=== PATIENT | male | born 1965 | race Caucasian/White ===

== ENCOUNTER 2022-01-08 16:11 | Emergency (ER) | payer BC, SELFPAY ==
[2022-01-08] VITALS (34 sets, daily range): BP systolic 120–151; BP diastolic 73–86; PULSE 93–119; RESP 14–40; TEMP 37–37.2; O2SAT 91–98
--- NOTE | ~2022-01-08 | CT_ITS ---
EXAMINATION: CT pelvis w con DATE: 01/08/2022 21:28 INDICATION: Rule out Chani gangrene TECHNIQUE: Computed tomography (CT) of the pelvis was performed with 100 mL Omnipaque-300 intravenous contrast. Automated exposure control and iterative reconstruction technique were employed. The dose- length product was 1372.29 mGy-cm. COMPARISON: None FINDINGS: Liver: Steatosis. Kidneys: Bilateral simple cysts. Right-sided hypodensities that are too small to characterize but als o likely represent cysts. Left inferior pole calcifications. GI tract: No small or large bowel dilation. Normal appendix. Mesentery/Peritoneum: No ascites, mass, or free air. Retroperitoneum: No mass. Pelvis: Bladder wall thickening, with mild surrounding inflammatory change. Mild prostate enlargement with calcifications. Seminal vesicles appear grossly normal. Soft Tissues: Small bilateral fat-containing inguinal hernias. Skin thickening and edema primarily af fecting the scrotum, but also extending into the soft tissues of the penis, with surrounding inflamma tory change. 1.7 cm rim-enhancing focus in the inferior right scrotum. No subcutaneous emphysema. Bones: No acute osseous finding. IMPRESSION: Extensive edema involving the skin of the scrotum, extending into the soft tissues of the penis. Poss ible 1.7 cm subcutaneous abscess in the inferior right scrotum. No subcutaneous emphysema to suggest necrotizing fasciitis, although this remains a clinical diagnosis. Reviewed, dictated and finalized at location K. IMPRESSION: Extensive edema involving the skin of the scrotum, extending into the soft tiss ues of the penis. Possible 1.7 cm subcutaneous abscess in the inferior right sc rotum. No subcutaneous emphysema to suggest necrotizing fasciitis, although thi s remains a clinical diagnosis.
--- NOTE | ~2022-01-08 | US_ITS ---
EXAMINATION: US scrotum doppler DATE: 01/08/2022 18:52 INDICATION: Testicular swelling, pain, fever. TECHNIQUE: Grayscale and Doppler ultrasound images of the testes were obtained. COMPARISON: None. FINDINGS: The right testis measures 4.7 x 2.6 x 3.7. The left testis measures 5.0 x 2.4 x 3.2. There is normal vascular flow to both testes. The right epididymis is normal with normal vascular flow. The left epididymis is normal with normal vascular flow. Trace bilateral hydroceles. Right varicocele. S crotal skin thickening. IMPRESSION: 1. No intratesticular mass or sonographic evidence of torsion. Right varicocele. 2. Possible scrotal cellulitis, correlate clinically. Reviewed, dictated and finalized at location K. IMPRESSION: 1. No intratesticular mass or sonographic evidence of torsion. Right varicocel e. 2. Possible scrotal cellulitis, correlate clinically.
--- NOTE | 2022-01-08 16:17 | ECG_ITS ---
Measurements Intervals [place] Rate: 115 P: 75 IN: 162 QRS: -68 QRSD: 114 T: 55 QT: 335 QTc: 465 Interpretive Statements SINUS TACHYCARDIA LEFT ANTERIOR FASCICULAR BLOCK ABNORMAL ECG Electronically Signed On 01-08-2022 16:22:23 CDT by Soren Blackwood D.O.
--- NOTE | 2022-01-08 17:51 | ED.MALEGU ---
HPI - Male Genitourinary General Chief complaint: Urogenital-Male Stated complaint: testicular swelling and pain Time Seen by Provider: 01/08/22 17:51 Source: patient and RN notes reviewed Limitations: no limitations History of Present Illness HPI Narrative: Patient is 56 years old white male presented to the ED with pain and swelling of the scrotum. He reported having a pimple like lesion at the bottom of his scrotum 2 months ago. Been squeezing pus material out of it for the last 2 months. Today got more swollen, more red and more tender. He denies any fever, chills, nausea, vomiting. History of diabetes and hyperlipidemia. Related Data Allergies Allergy/AdvReac Type Severity Reaction Status Date / Time No Known Allergies Allergy Verified 01/08/22 17:58 Review of Systems Review of Systems: All systems reviewed & are unremarkable except as noted in HPI and below PMFSH Past Medical History Medical History Diabetes mellitus type 2, uncontrolled GILES (obstructive sleep apnea) Surgical History Surgical History H/O left nephrectomy Family History Family History Mother Family history of cardiovascular disease Acute myocardial infarction Hypertension Father Acute myocardial infarction, Onset Age: 55 Family history of primary malignant neoplasm of liver, Onset Age: 55 Other Diabetes mellitus Social History Social History Smoking status: Former smoker Tobacco type: smokeless tobacco Smokeless tobacco user: other Alcohol intake: never Exam Narrative: General appearance: Well-developed, well-nourished Skin: Normal color Head: Normocephalic, nontraumatic Eyes: Clear conjunctiva ENT: Oropharynx normal, ears normal, nose normal Neck: Supple, nontender Chest and respiratory: Airway patent, no respiratory distress, no accessory muscle use Heart: Regular rate/rhythm Abdomen: Soft, diffuse erythema of the suprapubic area bilaterally, warm, diffusely tender, genital exam showed diffuse edema of the scrotum and penis with extensive erythema and a lump-like feeling at the bottom of the scrotum, no discharge at this time Vascular: Normal peripheral pulses, normal capillary refill. 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 Consultations Consultation #1: Dr. Ortega Accepted patient admission to the hospitalist. Date: 01/08/22 Time: 22:44 Consultation #2: Dr. Fajardo, Declined to accept the patient admission unless Dr. Ortega come and see the patient tonight. She is concerned about the possibility of impending necrotizing fasciitis. Specially the patient is diabetic. Date: 01/08/22 Time: 22:45 Consultation #3: Dr. Ortega Requested to transfer patient to another facility. Date: 01/08/22 Time: 22:45 Vital Signs Vital signs: Vital Signs Temperature 37.0 C 01/08/22 16:14 Pulse Rate 118 H 01/08/22 16:14 Respiratory Rate 20 01/08/22 16:14 Blood Pressure 151/78 H 01/08/22 16:14 Pulse Oximetry 97 01/08/22 16:14 Temperature 37.2 C 01/08/22 20:52 Pulse Rate 100 01/08/22 21:39 Respiratory Rate 18 01/08/22 21:39 Blood Pressure 135/73 01/08/22 21:39 Pulse Oximetry 98 01/08/22 21:39 MDM - Male Genitourinary Lab Data Result diagrams: 01/08/22 21:47 01/08/22 20:37 La
--- NOTE | 2022-01-08 18:36 | PC.NURSE ---
US at bedside for doppler
[2022-01-08] MEDS: ACETAMINOPHEN 500 MG TABLET 1000 MG PO (20:45)
[2022-01-08] MEDS: SODIUM CHLORIDE 0.9% IV 1,000 ML 999 ML IV CONT ×2 (20:45→23:41)
[2022-01-08 20:55] LABS: Lactic Acid Reflex 1.7 mmol/L (0.7-2.0)
[2022-01-08 21:01] LABS: Alanine Aminotransferase 45 U/L (6-50); Albumin Level 4.6 g/dL (3.5-5.1); Alkaline Phosphatase 74 U/L (38-126); Anion Gap 12 mmol/L (8-16); Aspartate Amino Transferase 25 U/L (17-59); Bilirubin,Total 1.6 mg/dL (0.2-1.3); Blood Urea Nitrogen 13 mg/dL (9-20); Calcium 9.2 mg/dL (8.4-10.2); Carbon Dioxide 20 mmol/L (22-30); Chloride 99 mmol/L (98-107); Estimated CRCL calculation 136 ml/min; Estimated Glomerular Filt Rate > 60; Glucose 310 mg/dL (65-110); Potassium 3.9 mmol/L (3.4-5.0); Sodium 131 mmol/L (137-145)
[2022-01-08 21:29] LABS: CRP 19.6 mg/dL (<1.0)
--- NOTE | 2022-01-08 21:33 | PC.NURSE ---
PT family updated per pt request
[2022-01-08 21:49] LABS: Appearance Urine Clear (Clear); Bilirubin Urine Negative (Negative); Color Urine Yellow (Yellow); Glucose Urine UA 3+ mg/dL (Negative); Ketones Urine 3+ mg/dL (Negative); Leukocyte Esterase Ur Negative LEU/UL (Negative); Nitrate Urine Negative (Negative); Protein Urine 1+ mg/dL (Negative); Specific Grav Ur 1.025 (1.001-1.035); Urobilinogen Urine 0.2 mg/dL (<2.0); pH Urine 5.5 (5.0-9.0)
[2022-01-08 21:55] LABS: Basophils Absolute Auto 0.1 K/mm3 (0.0-0.1); Basophils Percent Auto 0.4 % (0.2-1.2); Hematocrit 41.1 % (42.0-52.0); Hemoglobin 13.8 g/dL (14.0-18.0); Immature Granulocyte Absolute 0.11 K/mm3 (0.00-0.031); Immature Granulocyte Percent A 0.7 % (0-0.5); Lymphocytes Percent Auto 7.3 % (18.3-44.2); Mean Corpuscular HGB Conc 33.6 g/dl (32-36); Mean Corpuscular Hemoglobin 28.9 pg (26-34); Mean Platelet Volume 10.9 fl (7.4-10.4); Monocytes Percent Auto 6.3 % (2.6-8.5); Neutrophils Percent Auto 85.3 % (45.5-73.1); Platelet Count Result 143 k/mm3 (150-375); Red Blood Count 4.78 M/mm3 (4.6-6.20); Red Cell Distribution Width 12.5 % (11.5-14.5); White Blood Count 16.4 K/mm3 (4.5-10.0)
[2022-01-08 21:57] LABS: Add Urine Microscopic? YES; Blood Urine Trace (Negative)
[2022-01-08 22:04] LABS: RBC Urine 0-2 /hpf (0-2); Squamous Epithelial Cell Urine Rare /hpf (Few)
--- NOTE | 2022-01-08 22:54 | PC.NURSE ---
Call [facility] at [phone] not accepting patients. Call [facility] at [phone] not excepting patients. Call [facility] at [phone] waiting for doctor to return call.
[2022-01-09 00:01] VITALS: PULSE 91; RESP 22; O2SAT 94
--- NOTE | 2022-01-09 00:08 | PC.NURSE ---
[facility] call back at [phone] states the patient been denied and will call back in the morning if they any beds open.
[2022-01-09 00:15] VITALS: PULSE 98; RESP 22; O2SAT 90
[2022-01-09 01:48] LABS: Glucose Point of Care 261 mg/dl (65-105)
[2022-01-09 01:56] VITALS: BP 138/72; PULSE 94; RESP 16; TEMP 37.7; O2SAT 98
--- NOTE | 2022-01-09 02:09 | PM.IMCN ---
Assessment and Plan Assessment and plan (1) Chani's gangrene of scrotum: Code(s): N49.3 - Chani gangrene Status: Acute (2) Necrotizing fasciitis: Code(s): M72.6 - Necrotizing fasciitis Status: Acute (3) Type 2 diabetes mellitus with hyperglycemia, without long-term current use of insulin: Code(s): E11.65 - Type 2 diabetes mellitus with hyperglycemia Status: Acute (4) Sepsis: Qualifiers: Sepsis acute organ dysfunction status: without acute organ dysfunction Sepsis type: sepsis due to unspecified organism Qualified Code(s): A41.9 - Sepsis, unspecified organism Code(s): A41.9 - Sepsis, unspecified organism Status: Acute Additional Plan I was contacted around 10:00 p.m. regarding possible admission for the patient. However patient had LRINEC score of 9 [address] abscess [address] scan. The patient's is back story was highly suspicious of necrotizing fasciitis/Chani's gangrene. I felt the patient needed higher level of care. The ER staff stated that urology would see the patient they would not come in and evaluate the patient this evening. The contacted Urology again in urology told them to transfer the patient. The ER called me back around 1:00 a.m. stating that multiple facilities were contacted in that the did not have beds available. I went down to the ER to evaluate the patient and told them that I still felt the patient needed transfer to tertiary care. So I called the axis line for [facility] myself. I explained the patient's condition and they immediately agreed to take the patient for in the ER to ER transfer. The patient had received Rocephin, Flagyl and vancomycin in the ER. I stopped Rocephin and Flagyl and give the patient a dose of ertapenem and clindamycin. I discussed the patient's case with the ER physician who accepted patient in transfer. Patient was sent via ALS. Patient condition is serious. 60 minute spent critical care activities. This case had a high probability of a clinically significant, sudden, or life threatening deterioration of this patient's condition which required my full and direct attention, intervention and personal management. HPI Data of Consult Consult date: 01/10/22 Primary Care Provider: Kam Manning MD Consult Narrative Narrative: Carson Ring is a 56 year old male with a past medical history of obesity, obstructive sleep apnea, hyperlipidemia, and uncontrolled diabetes mellitus who presented to the ER with sudden onset of testicular swelling and pain that started this a.m.. The patient reports that he had a small pimple like lesion at the bottom of his scrotum that started about 2 months ago. He was occasionally able to squeeze out a small amount of pus from the area. He had not had any issues with the area for few days. Then when he woke up this morning he had a softball sized area on his right testicle that was tender to touch. The area was red and significantly larger in area. He denied any known fevers bony arrived to the ER his temperature was above 99?. He denied any did dysuria, hematuria or trauma to the area. He has not had any nausea or vomiting. He has had increased thirst for the last 24-48 hours. He does have type 2 diabetes mellitus but has not followed with with primary care doctor in 2 years. He does not check his blood sugars. He does have obstructive sleep apnea and uses CPAP. He has not had a bowel movement in about 48 hours. He denies any rectal pain or buttock pain. He has noticed a small amount of cottage cheese type rash to the head of his penis with some mild itching. Review of Systems Review of Systems: 12 systems were reviewed with pertinent positives and negatives per HPI. Except as documented in the HPI, all other systems were reviewed and are negative. [facility] Past Medical History Medical History Dependence on nicotine from
[2022-01-09] MEDS: metroNIDAZOLE 500 MG/ISO 100ML 500 MG/100 ML BAG 100 MG IVPB (02:14)
[2022-01-09] MEDS: SODIUM CHLORIDE 0.9% IV 1,000 ML 150 ML IV CONT (02:23)
[2022-01-09] MEDS: ERTAPENEM 1 GM/NS 50 ML 1 GM/50 ML BAG IVPB (03:31)
[2022-01-09] MEDS: CLINDAMYCIN 900 MG/D5W 50 ML 900 MG/50 ML PIGGYBACK 50 MG IVPB (03:33)
[2022-01-09 04:18] VITALS: BP 130/78; PULSE 80; RESP 16; TEMP 37.7; O2SAT 98
== END 2022-01-09 04:22 | disposition short-term general hospital (02) ==
LOC: ANHED 19:46
PROVIDERS: Emergency Provider Emergency Medicine; PCP Family Medicine
DX: N49.2 Inflammatory disorders of scrotum (principal); E11.9 Type 2 diabetes mellitus without complications; Z87.891 Personal history of nicotine dependence
CPT/HCPCS: 36415; 72193; 76870; 80053; 81001; 82948; 83605; 85025; 86140; 87040; 93005; 93976; 96361; 96365; 96367; 96368; 99285; A9270; J0696; J1335; J3370; J7030; Q9967

== ENCOUNTER 2022-01-18 12:47 | Inpatient (IN) | payer BC, SELFPAY ==
[2022-01-18] VITALS (12 sets, daily range): BP systolic 124–147; BP diastolic 67–91; PULSE 45–102; RESP 12–18; TEMP 35.7–37; O2SAT 93–100; BMI 33.6
--- NOTE | ~2022-01-18 | CT_ITS ---
EXAMINATION: CT pelvis w con DATE: 01/18/2022 15:29 INDICATION: Scrotal abscess. TECHNIQUE: Computed tomography (CT) of the pelvis was performed with 100 mL Omnipaque 300 intravenous contrast. Automated exposure control and iterative reconstruction technique were employed. The dose- length product was 1026.17 mGy-cm. COMPARISON: Pelvis CT 01/08/2022 FINDINGS: There are cysts in the kidneys measuring up to 2.7 cm on the right. There are no dilated lo ops of bowel. There is a right inguinal hernia containing fat. There are no pathologically enlarged l ymph nodes. There is a small right hydrocele. In the scrotum on the right, there is a 11.1 x 3.9 x 6. 2 cm multiloculated rim-enhancing fluid collection, consistent with abscess. Superior to the penis, t here is anterior subcutaneous fat stranding. There is mild thoracic spondylosis. IMPRESSION: 1. Worsened abscess in the scrotum on the right measuring 11.1 x 3.9 x 6.2 cm. Reviewed, dictated and finalized at location A.
--- NOTE | ~2022-01-18 | US_ITS ---
EXAMINATION: US scrotum doppler DATE: 01/22/2022 08:20 INDICATION: Scrotal abscess. TECHNIQUE: Grayscale and Doppler ultrasound images of the testes were obtained. COMPARISON: Ultrasound 01/08/2022, CT 01/18/2022 FINDINGS: The right testis measures 3.9 x 3.7 x 3.1 cm. The left testis measures 4.0 x 3.2 x 2.4 cm. There is normal vascular flow to both testes. The right epididymis is normal with normal vascular alfa w. The left epididymis is normal with normal vascular flow. There are small bilateral hydroceles. No varicocele. Scrotal skin thickening is noted. IMPRESSION: 1. Small bilateral hydroceles. Reviewed, dictated and finalized at location A.
--- NOTE | 2022-01-18 12:59 | PM.IMHP ---
H&P: HPI History of Present Illness Date/Time: Patient was placed observation status for expected length of stay less than 23 hours for management, will plan to re-evaluate tomorrow for improvement. 01/18/22 12:59 Chief Complaint: Scrotal abscess Narrative: Mr. Ring is a 56-year-old gentleman who initially presented to the emergency room on 01/08/2022 with complaints of testicular swelling and pain. Patient was seen in the emergency room and stated that he had had a ?pimple? like lesion on the bottom of his scrotum for approximately 2 months. Patient had been extracting a pus type material out of the area over that 2 months. . The day patient was seen in emergency room his scrotum was more swollen, red, and tender. Patient underwent CT scan and ultrasound of his scrotum. CT scan showed extensive edema involving the skin of the scrotum, extending into soft tissue of the penis. Possible 1.7 cm subcutaneous abscess in the inferior right scrotum. No subcutaneous emphysema to suggest necrotizing fasciitis although this remains a clinical diagnosis. Patient's LRINEC was 9 and it was decided to transfer patient to a higher level of care for possible Chani gangrene. Urology at [facility] was consulted and scrotal exam was done and CT was reviewed. [facility] at [facility] did not believe that there was a very low likelihood of Chani's gangrene and patient was given meropenem and vancomycin and IV clindamycin for 5 days. Blood cultures were performed and then patient was discharged on Augmentin with Bactrim for 14 days. Patient followed up with Urology today and it was decided the patient needed to be admitted to the hospital for an incision and drainage of his scrotum. Patient arrived to the hospital and states that he does continue to have a large amount of pain his scrotum. Patient states he has had no further drainage from his scrotum, but he can tell that there is something that needs to be drained. Patient denies any fever or chills. Patient denies any dysuria, hematuria, frequency, or urgency. Patient denies any chest pain, shortness a breath, lightheadedness, dizziness, syncopal, or near syncopal episodes. States he has not been sexually active for over 2 years. Patient states he has been taking all antibiotics are ordered by [facility] without any difficulty. Patient states he does have a known history of type 2 diabetes mellitus that has not been well controlled. Patient is on insulin 3 times daily with meals at 7 units and 31 units of long-acting insulin at night. Patient states that his blood glucose level still have been elevated. Patient states he also does have a history of dyslipidemia and he takes atorvastatin. Patient states he did have a stress test in 2009 time frame was told was within normal limits and he has not had any follow-up with Cardiology since that point. Patient denies any history of hypertension. Patient states he does vape, and prior to be being he did smoke a pack and half cigarettes a day for approximately 37 years. Review of Systems Review of Systems: A 12 point review of systems was completed patient all pertinent positive and negative per HPI the remainder are unremarkable. 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
--- NOTE | 2022-01-18 13:13 | WPDURCON ---
Assessment and Plan Assessment and plan (1) Scrotal abscess: Code(s): N49.2 - Inflammatory disorders of scrotum Status: Acute Plan Since it was determined that there is no concern for Chani's Gangrene, we will get a CT of the pelvis, start antibiotics (Rocephin), obtain consent and keep the patient NPO. Plan to go to the OR this afternoon for an I&D of the scrotum. The patient understands that this will require regular dressing changes and likely involvement of wound care, he agrees to proceed. Urology Consult Note HPI Date Seen: 01/18/22 Requesting Physician: Wilfredo Ochoa MD Primary Care Provider: Kam Manning MD Consult Narrative Narrative: Carson Ring is a 56 year old male who presented to our office today as a refferal from his PCP Dr. Manning for a worsening scrotal abscess. He was seen in the ER at [place] on 01/08/22 initially for this problem, was then transferred to [place] for further evaluation d/t concern for Chani's Gangrene. He was evaluated at [place] and determined it was not Gangrenous and then was admitted for 5 days on IV antibiotics. He notes that he has had significant improvement after this and was sent home with Augmentin and Bactrim. He noted regression of symptoms yesterday which led him to see Dr. Manning and then ultimately to us today. Dr. Ortega and I evaluated him the office today and determined that he is in need of an I&D as his scrotum is red, warm to touch, grossly edematous and tender to touch. He is afebrile at this time. We then elected to have him directly admitted for evaluation of his diabetes and to perform is scrotal I&D. The patient willingly agreed to the plan. Review of Systems Cardiovascular: Comments: Denies Chest Pain. Respiratory: Comments: Denies Difficulty Breathing Gastrointestinal: Comments: Denies abdominal pain Genitourinary: Comments: C/o severe scrotal pain, denies drainage. 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 Diabetes mellitus type 2, uncontrolled Hyperlipidemia GILES (obstructive sleep apnea) Compliant with CPAP Varicose veins of lower extremities with inflammation Surgical History Surgical History H/O left nephrectomy Previously listed under history but patient has both kidneys present on CT scan 01/08/2022 Family History Family History Mother Family history of cardiovascular disease Acute myocardial infarction Hypertension Father Acute myocardial infarction, Onset Age: 55 Family history of primary malignant neoplasm of liver, Onset Age: 55 Other Diabetes mellitus Social History Social History Social History: He has been since 2019. His of lung cancer. 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 He only drinks alcohol on special occasions drinks alcohol and only in moderation. He quit smoking cigarettes a few years ago and has been vaping since then. His history of chewing tobacco use. He denies illicit substance use. Smoking packs per day: 1 Smoking cigarettes per day: 20.0 Years smoked: 20 Smoking pack-years: 20.00 Smoking status: Never smoker Tobacco type: smokeless tobacco Smokeless tobacco user: chewing tobacco and other Alcohol intake: never Meds Home Medications and Allergies Home Medications Medication Instructions Recorded Confirmed Type atorvastatin 10 mg tablet 10 mg PO DAILY #90 tabs 12/01/20 01/08/22 Rx amoxicillin 875 mg-potassium 1 tablet PO BID 01/17/22 History clavulanate 125 mg tablet blood glucose test strips with 01/17/22 History disposable meter kit insulin glargine-yfgn 100 unit/mL 31 unit subcut QPM 01/17/22 History (3 mL) [place]
[2022-01-18 13:22] LABS: Basophils Absolute Auto 0.1 K/mm3 (0.0-0.1); Basophils Percent Auto 0.8 % (0.2-1.2); Eosinophils Absolute Auto 0.2 K/mm3 (0-0.3); Eosinophils Percent Auto 1.8 % (0-4.4); Hematocrit 41.5 % (42.0-52.0); Hemoglobin 12.9 g/dL (14.0-18.0); Immature Granulocyte Absolute 0.09 K/mm3 (0.00-0.031); Immature Granulocyte Percent A 0.9 % (0-0.5); Lymphocytes Percent Auto 18.3 % (18.3-44.2); Mean Corpuscular HGB Conc 31.1 g/dl (32-36); Mean Corpuscular Hemoglobin 28.2 pg (26-34); Mean Corpuscular Volume 90.6 fl (80-100); Mean Platelet Volume 9.7 fl (7.4-10.4); Monocytes Absolute Auto 0.5 K/mm3 (0.1-0.6); Monocytes Percent Auto 5.5 % (2.6-8.5); Neutrophils Absolute Auto 7.2 K/mm3 (1.3-6.7); Neutrophils Percent Auto 72.7 % (45.5-73.1); Platelet Count Result 345 k/mm3 (150-375); Red Blood Count 4.58 M/mm3 (4.6-6.20); Red Cell Distribution Width 12.5 % (11.5-14.5); White Blood Count 9.9 K/mm3 (4.5-10.0)
[2022-01-18 13:35] LABS: Alanine Aminotransferase 42 U/L (6-50); Albumin Level 4.2 g/dL (3.5-5.1); Alkaline Phosphatase 78 U/L (38-126); Anion Gap 6 mmol/L (8-16); Aspartate Amino Transferase 30 U/L (17-59); Bilirubin,Total 0.7 mg/dL (0.2-1.3); Blood Urea Nitrogen 6 mg/dL (9-20); Calcium 9.3 mg/dL (8.4-10.2); Carbon Dioxide 29 mmol/L (22-30); Chloride 103 mmol/L (98-107); Estimated Glomerular Filt Rate > 60; Glucose 216 mg/dL (65-110); Potassium 4.6 mmol/L (3.4-5.0); Sodium 138 mmol/L (137-145)
[2022-01-18 14:19] LABS: Magnesium 2.3 mg/dL (1.6-2.3)
[2022-01-18 14:21] LABS: Lactic Acid Reflex 1.2 mmol/L (0.7-2.0)
[2022-01-18 14:22] LABS: INR 1.1; Prothrombin Time 13.3 Seconds (11.1-14.7)
[2022-01-18 14:23] LABS: Partial Thromboplastin Time 29.9 SECONDS (22.3-36.8)
[2022-01-18 14:45] LABS: Glucose Point of Care 153 mg/dl (65-105)
--- NOTE | 2022-01-18 16:20 | WPDHPUPDATE1 ---
History and Physical Update Update Date/Time: 01/18/22 16:20 History and Physical has been reviewed, including an updated exam of the patient. There are NO changes in the patient's condition. Risks, benefits, and alternatives have been discussed and questions answered. Patient agrees to proceed with procedure.
--- NOTE | 2022-01-18 17:17 | WPDANESEPPF ---
Anes - Initial Pre Proc Eval Procedure: Operation Date: 01/18/22 16:45 Proposed Procedures p Incision and Drainage Scrotal Abscess - Tressa Ortega MD Date/Time: 01/18/22 17:17 Surgeon: Wilfredo Ochoa MD Pre Op Diagnosis: Scrotal Abscess Patient Data Age: 56 Gender: M Height: 1.83 m Weight: 112.5 kg Last Vital Signs Temp 37.0 C 01/18/22 16:06 Pulse 55 L 01/18/22 16:06 Resp 16 01/18/22 16:06 BP 137/75 01/18/22 16:06 Pulse Ox 98 01/18/22 16:06 O2 Del Method Room Air 01/18/22 16:06 Allergies Allergy/AdvReac Type Severity Reaction Status Date / Time No Known Allergies Allergy Verified 01/18/22 16:02 Home Medications Medication Instructions Recorded Confirmed Type atorvastatin 10 mg tablet 10 mg PO DAILY #90 tabs 12/01/20 01/18/22 Rx amoxicillin 875 mg-potassium 1 tablet PO BID 01/17/22 01/18/22 History clavulanate 125 mg tablet blood glucose test strips with 01/17/22 01/18/22 History disposable meter kit insulin glargine-yfgn 100 unit/mL 31 unit subcut QPM 01/17/22 01/18/22 History (3 mL) subcutaneous pen (Semglee (insulin glargine-yfgn) Pen) insulin lispro 100 unit/mL 7 unit subcut TID 01/17/22 01/18/22 History subcutaneous cartridge (Humalog U-100 Insulin) pen needle, diabetic 31 gauge x 01/17/22 01/18/22 History 5/16 pen needle, diabetic 31 gauge x 01/17/22 01/18/22 History 5/32 sulfamethoxazole 800 1 tablet PO Q12H 01/17/22 01/18/22 History mg-trimethoprim 160 mg tablet Laboratory Tests 01/18/22 01/18/22 01/18/22 12:46 12:46 12:51 WBC 9.9 K/mm3 K/mm3 (4.5-10.0) RBC 4.58 M/mm3 L M/mm3 (4.6-6.20) Hgb 12.9 g/dL L g/dL (14.0-18.0) Hct 41.5 % L % (42.0-52.0) MCV 90.6 fl fl (80-100) MCH 28.2 pg pg (26-34) MCHC 31.1 g/dl L g/dl (32-36) RDW 12.5 % % (11.5-14.5) Plt Count 345 k/mm3 D k/mm3 (150-375) MPV 9.7 fl fl (7.4-10.4) Immature Gran % (Auto) 0.9 % H % (0-0.5) Neut % (Auto) 72.7 % % (45.5-73.1) Lymph % (Auto) 18.3 % % (18.3-44.2) [place] % (Auto) 5.5 % % (2.6-8.5) Eos % (Auto) 1.8 % % (0-4.4) Baso % (Auto) 0.8 % % (0.2-1.2) Lymph # (Auto) 1.80 K/mm3 K/mm3 (0.9-3.2) [place] # (Auto) 0.5 K/mm3 K/mm3 (0.1-0.6) Eos # (Auto) 0.2 K/mm3 K/mm3 (0-0.3) Baso # (Auto) 0.1 K/mm3 K/mm3 (0.0-0.1) Abs Immat Gran (auto) 0.09 K/mm3 H K/mm3 (0.00-0.031) Absolute Neuts (auto) 7.2 K/mm3 H K/mm3 (1.3-6.7) Absolute Nucleated RBC 0.0 K/mm3 K/mm3 (0.0-0.012) Nucleated RBC % 0.0 % % (0.0-0.2) PT 13.3 Seconds Seconds (11.1-14.7) INR 1.1 APTT 29.9 SECONDS SECONDS (22.3-36.8) Sodium Potassium Chloride Carbon Dioxide Anion Gap BUN Creatinine Estim Creat Clear Calc Estimated GFR Glucose POC Capillary Glucose Lactic Acid Calcium Magnesium 2.3 mg/dL mg/dL (1.6-2.3) Total Bilirubin AST ALT Alkaline Phosphatase Total Protein Albumin 01/18/22 01/18/22 01/18/22 12:52 14:06 14:42 WBC RBC Hgb Hct MCV MCH MCHC RDW Plt Count MPV Immature Gran % (Auto) Neut % (Auto) Lymph % (Auto) [place] % (Auto) Eos % (Auto) Baso % (Auto) Lymph # (Auto) [place] # (Auto) Eos # (Auto) Baso # (Auto) Abs Immat Gran (auto) Absolute Neuts (auto) Absolute Nucle
[2022-01-18] MEDS: cefTRIAXone 2 GM in SODIUM CHLORIDE 0.9% IV 100 ML 200 ML IVPB (17:33)
[2022-01-18] MEDS: ceFAZolin SODIUM 1 GM VIAL IRRIGATION (18:04)
[2022-01-18] MEDS: LACTATED RINGERS 1,000 ML 30 ML IV CONT ×2 (18:20)
--- NOTE | 2022-01-18 18:22 | W.PM.PROC2 ---
Procedure Note - Detailed Date of Procedure 01/18/22 Pre-op Diagnosis Scrotal Abscess Post-op Diagnosis Same Procedure Performed Incision and drainage of scrotal abscess, washout Surgeon Tressa Ortega MD Findings Large right scrotal abscess -over 15cm and a length with [id number] of purulent material drained Description of Procedure Informed consent was obtained. Patient taken operating room. He was given preoperative IV antibiotics with ceftriaxone. The patient was in douches anesthesia. He was placed in the dorsal lithotomy position. He was prepped and draped in normal sterile fashion. We inserted a 16 F Greer catheter with return of clear urine. The right hemiscrotum was fluctuant and a 5cm incision was made transversely. There was immediate return of purulence fluid. A culture was taken. [id number] of fluid was drained initially. We then copiously irrigated. We used post evacuation to clean tissues. This point all edges were bleeding. The patient had a right hydrocele which we elected not to open to avoid exposure of the testicle as it had appeared normal on previous imaging. The abscess cavity measured approximately 15cm. We placed a Lizzy drain through the inferior aspect of the abscess cavity and tied to itself. We then packed the wound with antibiotic soaked Kerlix gauze. A supporter was then placed. Patient then was awakened and taken recovery room stable condition
[2022-01-18] MEDS: fentaNYL CITRATE INJ (*CRX) 100 MCG/2 ML VIAL 25 MCG IV PUSH ×4 (18:41→19:03)
[2022-01-18 19:31] LABS: Glucose Point of Care 132 mg/dl (65-105)
[2022-01-18 20:10] LABS: Glucose Point of Care 142 mg/dl (65-105)
[2022-01-18] MEDS: CLINDAMYCIN 900 MG/D5W 50 ML 900 MG/50 ML PIGGYBACK 50 MG IVPB (20:16)
[2022-01-18] MEDS: INSULIN GLARGINE (*BKC) 100 UNITS/ML 31 UNITS SUB-Q (20:16)
--- NOTE | 2022-01-18 20:20 | PC.NURSE ---
pt returned to floor via bed. A&Ox4 still exhibiting signs of sedations. stressed use of call light for needed assistance.
[2022-01-18] MEDS: MORPHINE SULFATE (*CRX) 2 MG/ML INJ IV PUSH (20:47)
[2022-01-19 00:16] VITALS: BP 115/75; PULSE 60; RESP 18; TEMP 36.6; O2SAT 97
[2022-01-19 04:01] VITALS: BP 111/64; PULSE 60; RESP 16; TEMP 36.3; O2SAT 97
[2022-01-19] MEDS: CLINDAMYCIN 900 MG/D5W 50 ML 900 MG/50 ML PIGGYBACK 50 MG IVPB ×3 (05:31→21:20)
[2022-01-19 06:14] LABS: Hematocrit 35.5 % (42.0-52.0); Hemoglobin 11.2 g/dL (14.0-18.0); Mean Corpuscular HGB Conc 31.5 g/dl (32-36); Mean Corpuscular Hemoglobin 28.8 pg (26-34); Mean Corpuscular Volume 91.3 fl (80-100); Mean Platelet Volume 10.2 fl (7.4-10.4); Platelet Count Result 332 k/mm3 (150-375); Red Blood Count 3.89 M/mm3 (4.6-6.20); Red Cell Distribution Width 12.7 % (11.5-14.5); White Blood Count 11.3 K/mm3 (4.5-10.0)
[2022-01-19 06:22] LABS: Anion Gap 3 mmol/L (8-16); Blood Urea Nitrogen 6 mg/dL (9-20); Calcium 8.3 mg/dL (8.4-10.2); Carbon Dioxide 28 mmol/L (22-30); Chloride 104 mmol/L (98-107); Estimated CRCL calculation 128 ml/min; Estimated Glomerular Filt Rate > 60; Glucose 228 mg/dL (65-110); Potassium 4.2 mmol/L (3.4-5.0); Sodium 135 mmol/L (137-145)
[2022-01-19 07:43] LABS: Glucose Point of Care 238 mg/dl (65-105)
[2022-01-19] MEDS: INSULIN ASPART (*BKC) 100 UNITS/ML SUB-Q ×3 (08:12→17:17)
[2022-01-19] MEDS: INSULIN ASPART (*BKC) 100 UNITS/ML 7 UNITS SUB-Q ×2 (08:13→12:29)
[2022-01-19] MEDS: ENOXAPARIN 40 MG/0.4 ML SYRINGE SUB-Q (08:27)
[2022-01-19] MEDS: ATORVASTATIN 10 MG TABLET PO (08:28)
--- NOTE | 2022-01-19 09:15 | PM.IMPN ---
Progress Note: A&P Assessment and Plan (1) Scrotal abscess: Code(s): N49.2 - Inflammatory disorders of scrotum <Marina Crisostomo PA-C - Last Filed: 01/19/22 13:56> Status: Acute <Marina Crisostomo PA-C - Last Filed: 01/19/22 13:56> Assessment and Plan: -01/18- Patient underwent CT of the abdomen pelvis with contrast which showed Worsened abscess in the scrotum on the right measuring 11.1 x 3.9 x 6.2 cm.. Pt was taken to OR on 01/18 for I&D with urology with abscess cavity of 15cm and 150ml fluid drained. [place] drain was placed. Urology provided following recommendations: -continue IV antibiotics, I would recommend we broad coverage while we await final cultures from the wound.? Consider Infectious Disease consultation. -wound care consult -patient may require additional washout and debridement versus repair. -continue daily labs -01/19- POD #1 Scrotal I&D. WBC elevation 11.3, likely postoperative. Continue patient on Zosyn, Clinda, Vancomycin pending abscess cultures. Continue AM labs. Wound was repacked at bedside by Urology today, they are considering another washout and or debridement with possible wound VAC placement in the OR. <Marina Crisostomo PA-C - Last Filed: 01/19/22 13:56> (2) Type 2 diabetes mellitus with hyperglycemia, without long-term current use of insulin: Code(s): E11.65 - Type 2 diabetes mellitus with hyperglycemia <Marina Crisostomo PA-C - Last Filed: 01/19/22 13:56> Status: Acute <Marina Crisostomo PA-C - Last Filed: 01/19/22 13:56> Assessment and Plan: Patient has been placed on blood glucose monitoring before meals and at bedtime and will resume patient's home long-acting insulin as well as short-acting insulin, but will also place patient on sliding scale insulin since this has not been controlling his blood glucose levels. -01/19- Glucose has been high in the 200s today. Increase basal insulin to 35 from 31 units, and increased t.i.d. aspart dosing from 7-10 units. Continue moderate dose sliding scale insulin and Accu-Cheks. Continue to optimize blood sugar control for optimal wound healing. <Marina Crisostomo PA-C - Last Filed: 01/19/22 13:56> (3) GILES (obstructive sleep apnea): Code(s): G47.33 - Obstructive sleep apnea (adult) (pediatric) <Marina Crisostomo PA-C - Last Filed: 01/19/22 13:56> Status: Acute <LENO Kelley Last Filed: 01/19/22 13:56> Assessment and Plan: Patient has been compliant with his CPAP will encourage him to continue compliance with his CPAP during hospitalization. <Marina Crisostomo PA-C - Last Filed: 01/19/22 13:56> Subjective Date/time seen: 01/19/22 09:15 Mr. Ring is a 56-year-old gentleman who initially presented to the emergency room on 01/08/2022 with complaints of testicular swelling and pain.? Patient was seen in the emergency room and stated that he had had a ?pimple? like lesion on the bottom of his scrotum for approximately 2 months. Patient was taken by urology on 01/18 for I and D of the scrotum and initiation of Rocephin antibiotics. Patient was resting in his room during my visit today, he had just been given a pain shot prior to repacking of his scrotum. He denies chest pain, shortness a breath, nausea, vomiting, fevers, chills. He has a [place]er catheter at this time. <Marina Crisostomo PA-C - Last Filed: 01/19/22 13:56> Review of Systems Review of Systems: All systems reviewed & are unremarkable except as noted in HPI and below <Marina Crisostomo PA-C - Last Filed: 01/19/22 13:56> Exam Narrative: GENERAL APPEARANCE: Alert and oriented x 3, in no apparent distress, lying recumbent. Somewhat obtunded due to pain medication. HEENT: PERRL, EOMI. Sclerae anicteric. Moist mucous membranes. NECK: Supple. No JVD or obvious carotid bruits. RESPIRATORY: Respirations are nonlabored. Breath sounds are equal and clear bilaterally. No wheezes, Rhonchi, or rales. CAR
[2022-01-19] MEDS: HYDROmorphone HCL INJ (*CRX) 1 MG/ML SYR IV PUSH (11:36)
[2022-01-19 12:02] LABS: Glucose Point of Care 264 mg/dl (65-105)
--- NOTE | 2022-01-19 12:08 | WPDUROPN2 ---
Progress Note: A&P Assessment and Plan (1) Scrotal abscess: Code(s): N49.2 - Inflammatory disorders of scrotum Status: Acute (2) Sepsis: Qualifiers: Sepsis type: sepsis due to unspecified organism Sepsis acute organ dysfunction status: without acute organ dysfunction Qualified Code(s): A41.9 - Sepsis, unspecified organism Code(s): A41.9 - Sepsis, unspecified organism Status: Acute (3) Type 2 diabetes mellitus with hyperglycemia, without long-term current use of insulin: Code(s): E11.65 - Type 2 diabetes mellitus with hyperglycemia Status: Acute Plan - continue IV antibiotics (vanc, Zosyn, clinda). Await final wound culture results - wound repacked at bedside today. He appears to be healing well. Consider another washout / Debridement with possible wound VAC placement in the operating room. - continue diabetes mellitus control per Primary team - continue daily labs Subjective Subjective Date/Time Seen: 01/19/22 12:08 Overnight patient has felt well. He has had some continued right-sided scrotal pain. Exam Narrative: the patient is awake alert in no acute distress. His breathing is unlabored. His abdomen is soft nontender nondistended. The patient has a packed wound in the right hemiscrotum. The skin is viable. Procedure: After the patient was given IV pain medication, the Kerlix placed in the operating room was removed. Inspection of the wound revealed some granulation tissue adjacent to the right testicle, otherwise the wound appeared to be healing well with pink / beefy tissue throughout. The wound was repacked with moist Kerlix. Patient tolerated Objective Data Vital Signs Vital Signs: Vital Signs - 24 hr 01/18/22 14:00 01/18/22 16:06 01/18/22 17:29 Temperature 35.7 C L 37.0 C Pulse Rate 102 H 55 L Respiratory Rate 16 16 Blood Pressure 131/79 137/75 Pulse Oximetry 97 98 98 Oxygen Delivery Room Air Room Air Oxygen Flow Rate 01/18/22 18:20 01/18/22 18:34 01/18/22 18:49 Temperature 36.7 C Pulse Rate 88 70 45 L Respiratory Rate 13 12 13 Blood Pressure 142/91 H 147/91 H 147/88 H Pulse Oximetry 100 100 100 Oxygen Delivery Simple Face Mask Simple Face Mask Simple Face Mask Oxygen Flow Rate 7 7 7 01/18/22 19:00 01/18/22 19:15 01/18/22 19:30 Temperature Pulse Rate 64 51 L 52 L Respiratory Rate 16 16 14 Blood Pressure 137/81 130/82 135/86 Pulse Oximetry 100 93 97 Oxygen Delivery Room Air Nasal Cannula Nasal Cannula Oxygen Flow Rate 1 1 01/18/22 20:01 01/18/22 20:15 01/18/22 20:45 Temperature 36.8 C 36.8 C 36.6 C Pulse Rate 53 L 55 L 58 L Respiratory Rate 16 16 18 Blood Pressure 127/72 124/74 129/67 Pulse Oximetry 98 100 98 Oxygen Delivery Oxygen Flow Rate 01/19/22 00:16 01/19/22 04:01 Temperature 36.6 C 36.3 C L Pulse Rate 60 60 Respiratory Rate 18 16 Blood Pressure 115/75 111/64 Pulse Oximetry 97 97 Oxygen Delivery Oxygen Flow Rate Intake/Output Intake/Output: Intake & Output 01/16/22 01/17/22 01/18/22 01/19/22 23:59 23:59 23:59 23:59 Intake Total 900 590 Output Total 800 1100 Balance 100 -510 Meds/Results Medications: Active Medications Generic Name Dose Route Start Last Admin Trade Name Freq PRN Reason Stop Dose Admin Acetaminophen 650 mg 01/18/22 12:46 Acetaminophen 325 Mg Tablet PO Q4H PRN Mild Pain (1-3) or Fever Hydrocodone Bitart/Acetaminophen 1 tab 01/18/22 12:46 Hydrocodone/Acetaminophen (*Crx) 5-325 Mg Tablet PO Q4H PRN Moderate Pain (4-6) Atorvastatin Calcium 10 mg 01/19/22 09:00 01/19/22 08:28 Atorvastatin 10 Mg Tablet PO 10 mg DAILY KATHERINE Administration Dextrose 12.5 gm 01/18/22 12:56 Dextrose 50% 25 Gm/50 Ml Syringe IV PUSH PRN PRN Hypoglycemia Protocol Enoxaparin Sodium 40 mg 01/19/22 09:00 01/19/22 08:27 Enoxaparin 40 Mg/0.4 Ml Syringe SUB-Q 40 mg DAILY KATHERINE Adminis
--- NOTE | 2022-01-19 12:54 | WPDANESPN ---
Anes - Prog Note Post-Op Date/Time: 01/19/22 12:54 Vital Signs: Last Vital Signs Temp 36.3 C L 01/19/22 04:01 Pulse 60 01/19/22 04:01 Resp 16 01/19/22 04:01 BP 111/64 01/19/22 04:01 Pulse Ox 97 01/19/22 04:01 O2 Del Method Nasal Cannula 01/18/22 19:30 O2 Flow Rate 1 01/18/22 19:30 Pain Score (VAS): 3 I/O: Intake & Output 01/18/22 01/19/22 01/19/22 23:59 07:59 15:59 Intake Total 900 640 500 Output Total 800 1100 Balance 100 -460 500 Laboratory Tests 01/19/22 05:29 01/19/22 05:29 01/18/22 01/18/22 01/18/22 12:46 12:46 12:51 WBC 9.9 RBC 4.58 L Hgb 12.9 L Hct 41.5 L MCV 90.6 MCH 28.2 MCHC 31.1 L RDW 12.5 Plt Count 345 D MPV 9.7 Immature Gran % (Auto) 0.9 H Neut % (Auto) 72.7 Lymph % (Auto) 18.3 [place] % (Auto) 5.5 Eos % (Auto) 1.8 Baso % (Auto) 0.8 Lymph # (Auto) 1.80 [place] # (Auto) 0.5 Eos # (Auto) 0.2 Baso # (Auto) 0.1 Abs Immat Gran (auto) 0.09 H Absolute Neuts (auto) 7.2 H Absolute Nucleated RBC 0.0 Nucleated RBC % 0.0 PT 13.3 INR 1.1 APTT 29.9 Sodium Potassium Chloride Carbon Dioxide Anion Gap BUN Creatinine Estim Creat Clear Calc Estimated GFR Glucose POC Capillary Glucose Lactic Acid Calcium Magnesium 2.3 Total Bilirubin AST ALT Alkaline Phosphatase Total Protein Albumin 01/18/22 01/18/22 01/18/22 12:52 14:06 14:42 WBC RBC Hgb Hct MCV MCH MCHC RDW Plt Count MPV Immature Gran % (Auto) Neut % (Auto) Lymph % (Auto) [place] % (Auto) Eos % (Auto) Baso % (Auto) Lymph # (Auto) [place] # (Auto) Eos # (Auto) Baso # (Auto) Abs Immat Gran (auto) Absolute Neuts (auto) Absolute Nucleated RBC Nucleated RBC % PT INR APTT Sodium 138 Potassium 4.6 Chloride 103 Carbon Dioxide 29 Anion Gap 6 L BUN 6 L D Creatinine 0.70 Estim Creat Clear Calc Not Reportable Estimated GFR > 60 Glucose 216 H POC Capillary Glucose 153 H Lactic Acid 1.2 Calcium 9.3 Magnesium Total Bilirubin 0.7 AST 30 ALT 42 Alkaline Phosphatase 78 Total Protein 8.0 Albumin 4.2 01/18/22 01/18/22 01/19/22 19:28 20:05 05:29 WBC 11.3 H RBC 3.89 L Hgb 11.2 L Hct 35.5 L MCV 91.3 MCH 28.8 MCHC 31.5 L RDW 12.7 Plt Count 332 MPV 10.2 Immature Gran % (Auto) Neut % (Auto) Lymph % (Auto) [place] % (Auto) Eos % (Auto) Baso % (Auto) Lymph # (Auto) [place] # (Auto) Eos # (Auto) Baso # (Auto) Abs Immat Gran (auto) Absolute Neuts (auto) Absolute Nucleated RBC Nucleated RBC % PT INR APTT Sodium Potassium Chloride Carbon Dioxide Anion Gap BUN Creatinine Estim Creat Clear Calc Estimated GFR Glucose POC Capillary Glucose 132 H 142 H Lactic Acid Calcium Magnesium Total Bilirubin AST ALT Alkaline Phosphatase Total Protein Albumin 01/19/22 01/19/22 01/19/22 05:29 07:41 11:46 WBC RBC Hgb Hct MCV MCH MCHC RDW Plt Count MPV Immature Gran % (Auto) Neut % (Auto) Lymph % (Auto) [place] % (Auto) Eos % (Auto) Baso % (Auto) Lymph # (Auto) [place] # (Auto) Eos # (Auto) Baso # (Auto) Abs Immat Gran (auto) Absolute Neuts (auto) Absolute Nucleated RBC Nucleated RBC % PT INR APTT Sodium 135 L Potassium 4.2 Chloride 104 Carbon Dioxide 28 Anion Gap 3 L BUN 6 L Creatinine 0.70 Estim Creat Clear Calc 128 Estimated GFR > 60 Glucose 228 H POC Capillary Glucose 238 H 264 H Lactic Acid Calcium 8.3 L Magnesium Total Bilirubin AST ALT Alkaline Phosphatase Total Protein Albumin Microbiology
[2022-01-19 14:00] VITALS: BP 98/69; PULSE 110; RESP 16; TEMP 37; O2SAT 92
[2022-01-19 14:21] VITALS: O2SAT 96
[2022-01-19 16:41] LABS: Glucose Point of Care 254 mg/dl (65-105)
[2022-01-19] MEDS: INSULIN ASPART (*BKC) 100 UNITS/ML 10 UNITS SUB-Q (17:17)
--- NOTE | 2022-01-19 18:06 | WPDANESEPP ---
Anes - Eval Pre Procedure Procedure: Operation Date: 01/18/22 17:45 Proposed Procedures p Incision and Drainage Scrotal Abscess - Tressa Ortega MD Date/Time: 01/19/22 18:06 Pre Op Diagnosis: Scrotal Abscess Patient Data Age: 56 Gender: M Height: 1.83 m Weight: 112.5 kg Last Vital Signs Temp 37.0 C 01/19/22 14:00 Pulse 110 H 01/19/22 14:00 Resp 16 01/19/22 14:00 BP 98/69 L 01/19/22 14:00 Pulse Ox 96 01/19/22 14:21 O2 Del Method Room Air 01/19/22 14:21 O2 Flow Rate 1 01/18/22 19:30 Allergies Allergy/AdvReac Type Severity Reaction Status Date / Time No Known Allergies Allergy Verified 01/18/22 16:02 Home Medications Medication Instructions Recorded Confirmed Type atorvastatin 10 mg tablet 10 mg PO DAILY #90 tabs 12/01/20 01/18/22 Rx amoxicillin 875 mg-potassium 1 tablet PO BID 01/17/22 01/18/22 History clavulanate 125 mg tablet blood glucose test strips with 01/17/22 01/18/22 History disposable meter kit insulin glargine-yfgn 100 unit/mL 31 unit subcut QPM 01/17/22 01/18/22 History (3 mL) subcutaneous pen (Semglee (insulin glargine-yfgn) Pen) insulin lispro 100 unit/mL 7 unit subcut TID 01/17/22 01/18/22 History subcutaneous cartridge (Humalog U-100 Insulin) pen needle, diabetic 31 gauge x 01/17/22 01/18/22 History 5/16 pen needle, diabetic 31 gauge x 01/17/22 01/18/22 History 5/32 sulfamethoxazole 800 1 tablet PO Q12H 01/17/22 01/18/22 History mg-trimethoprim 160 mg tablet Laboratory Tests 01/18/22 01/18/22 01/19/22 19:28 20:05 05:29 WBC 11.3 K/mm3 H K/mm3 (4.5-10.0) RBC 3.89 M/mm3 L M/mm3 (4.6-6.20) Hgb 11.2 g/dL L g/dL (14.0-18.0) Hct 35.5 % L % (42.0-52.0) MCV 91.3 fl fl (80-100) MCH 28.8 pg pg (26-34) MCHC 31.5 g/dl L g/dl (32-36) RDW 12.7 % % (11.5-14.5) Plt Count 332 k/mm3 k/mm3 (150-375) MPV 10.2 fl fl (7.4-10.4) Sodium Potassium Chloride Carbon Dioxide Anion Gap BUN Creatinine Estim Creat Clear Calc Estimated GFR Glucose POC Capillary Glucose 132 mg/dl H mg/dl 142 mg/dl H mg/dl (65-105) (65-105) Calcium 01/19/22 01/19/22 01/19/22 05:29 07:41 11:46 WBC RBC Hgb Hct MCV MCH MCHC RDW Plt Count MPV Sodium 135 mmol/L L mmol/L (137-145) Potassium 4.2 mmol/L mmol/L (3.4-5.0) Chloride 104 mmol/L mmol/L (98-107) Carbon Dioxide 28 mmol/L mmol/L (22-30) Anion Gap 3 mmol/L L mmol/L (8-16) BUN 6 mg/dL L mg/dL (9-20) Creatinine 0.70 mg/dL mg/dL (0.7-1.3) Estim Creat Clear Calc 128 ml/min ml/min Estimated GFR > 60 (59 - ) Glucose 228 mg/dL H mg/dL (65-110) POC Capillary Glucose 238 mg/dl H mg/dl 264 mg/dl H mg/dl (65-105) (65-105) Calcium 8.3 mg/dL L mg/dL (8.4-10.2) 01/19/22 16:39 WBC RBC Hgb Hct MCV MCH MCHC RDW Plt Count MPV Sodium Potassium Chloride Carbon Dioxide Anion Gap BUN Creatinine Estim Creat Clear Calc Estimated GFR Glucose POC Capillary Glucose 254 mg/dl H mg/dl (65-105) Calcium Patient hx anesthesia problems: none Family hx anesthesia problems: none Results Review: All pre-operative results and documents have been reviewed as part of the pre-operative evaluation. [facility] Past Medical History Medical History Dependence on nicotine from chewing tobacco Diabetes mellitus type
[2022-01-19] MEDS: cefTRIAXone 2 GM in SODIUM CHLORIDE 0.9% IV 100 ML 200 ML IVPB (18:15)
[2022-01-19 21:20] VITALS: BP 107/71; PULSE 99; RESP 16; TEMP 36.8; O2SAT 95
[2022-01-19] MEDS: INSULIN GLARGINE (*BKC) 100 UNITS/ML 35 UNITS SUB-Q (21:22)
[2022-01-19 21:45] LABS: Glucose Point of Care 248 mg/dl (65-105)
[2022-01-20] VITALS (15 sets, daily range): BP systolic 107–128; BP diastolic 65–78; PULSE 76–127; RESP 14–117; TEMP 35.6–36.8; O2SAT 90–100
[2022-01-20] MEDS: CLINDAMYCIN 900 MG/D5W 50 ML 900 MG/50 ML PIGGYBACK 50 MG IVPB (05:47)
[2022-01-20 05:58] LABS: Hematocrit 25.9 % (42.0-52.0); Hemoglobin 8.5 g/dL (14.0-18.0); Mean Corpuscular HGB Conc 32.8 g/dl (32-36); Mean Corpuscular Hemoglobin 28.6 pg (26-34); Mean Corpuscular Volume 87.2 fl (80-100); Mean Platelet Volume 9.7 fl (7.4-10.4); Platelet Count Result 345 k/mm3 (150-375); Red Blood Count 2.97 M/mm3 (4.6-6.20); Red Cell Distribution Width 12.5 % (11.5-14.5); White Blood Count 13.9 K/mm3 (4.5-10.0)
[2022-01-20 06:04] LABS: Anion Gap 2 mmol/L (8-16); Blood Urea Nitrogen 10 mg/dL (9-20); Calcium 8.5 mg/dL (8.4-10.2); Carbon Dioxide 32 mmol/L (22-30); Chloride 101 mmol/L (98-107); Estimated CRCL calculation 102 ml/min; Estimated Glomerular Filt Rate > 60; Glucose 226 mg/dL (65-110); Potassium 4.2 mmol/L (3.4-5.0); Sodium 135 mmol/L (137-145)
[2022-01-20 06:47] LABS: Vancomycin Trough 9.7 ug/mL (10.0-20.0)
--- NOTE | 2022-01-20 07:27 | P.PNAN_ITS ---
Anes - Eval Final PreProcedure Day of Procedure 01/20/22 07:27 Patient weight: obese Heart: regular rate and rhythm Lungs: clear to auscultation Airway: Mallampati scale class II Neurological: alert and oriented Last oral intake: >/= 8 hours ASA classification: III Emergent: no Anesthetic plan: proceed Anesthesia type and monitoring: general LMA and standard monitoring Results Review: All pre-operative results and documents have been reviewed as part of the pre- operative evaluation. Informed Consent: The patient's anesthetic plan and its attendant risks and benefits were discussed with the patient/family/POA. Questions were solicited and answers provided to the satisfaction of the patient/family/POA.
[2022-01-20] MEDS: ceFAZolin SODIUM 1 GM VIAL 3 GM IRRIGATION (08:03)
[2022-01-20] MEDS: LACTATED RINGERS 1,000 ML 30 ML IV CONT (08:23)
--- NOTE | 2022-01-20 08:26 | W.PM.PROC2 ---
Procedure Note - Detailed Date of Procedure 01/20/22 Pre-op Diagnosis Scrotal Abscess Post-op Diagnosis Same Procedure Performed Wound debridement, irrigation, packing, washout Surgeon Tressa Ortega MD Description of Procedure Informed consent was obtained. Patient taken the operating. He was given preoperative IV antibiotics. He was induced anesthesia. The previous packing was removed. He was prepped and draped. The wound cavity appeared to be healing well, there were multiple areas of fibrinous exudate that were debrided sharply with curette. At this point all edges were pink and viable. The tunica vaginalis was not opened, the testicle was palpably normal inside a moderate sized hydrocele. We then irrigated with antibiotic solution. There was good hemostasis. The wound was packed with a antibiotic soaked Kerlix. The patient was then awakened and taken recovery stable condition. Urine Output 1,600 Packing Yes Complications No immediate complications Condition Stable Disposition PACU
[2022-01-20 08:38] LABS: Glucose Point of Care 238 mg/dl (65-105)
[2022-01-20] MEDS: ATORVASTATIN 10 MG TABLET PO (09:36)
[2022-01-20 09:39] LABS: Glucose Point of Care 266 mg/dl (65-105)
[2022-01-20] MEDS: INSULIN ASPART (*BKC) 100 UNITS/ML SUB-Q ×2 (09:53→11:43)
[2022-01-20] MEDS: INSULIN ASPART (*BKC) 100 UNITS/ML 10 UNITS SUB-Q ×3 (09:54→17:12)
--- NOTE | 2022-01-20 10:13 | PM.IMPN ---
Progress Note: A&P Assessment and Plan (1) Scrotal abscess: Code(s): N49.2 - Inflammatory disorders of scrotum Status: Acute Assessment and Plan: -01/18- Patient underwent CT of the abdomen pelvis with contrast which showed Worsened abscess in the scrotum on the right measuring 11.1 x 3.9 x 6.2 cm.. Pt was taken to OR on 01/18 for I&D with urology with abscess cavity of 15cm and 150ml fluid drained. [place] drain was placed. Urology provided following recommendations: -continue IV antibiotics, I would recommend we broad coverage while we await final cultures from the wound.? Consider Infectious Disease consultation. -wound care consult -patient may require additional washout and debridement versus repair. -continue daily labs -01/19- POD #1 Scrotal I&D. WBC elevation 11.3, likely postoperative. Continue patient on Zosyn, Clinda, Vancomycin pending abscess cultures. Continue AM labs. Wound was repacked at bedside by Urology today, they are considering another washout and or debridement with possible wound VAC placement in the OR. -01/19- POD#2 I&D, Patient taken back to OR this AM for additional debridement and wound washout. WBC ^13, Hgb 8.5, drop from 11.2 yesterday. VSS. No reportable blood loss in OR. Repeat H&H at noon. Lactic acid ordered. (2) Anemia: Code(s): D64.9 - Anemia, unspecified Status: Acute Assessment and Plan: 01/20. Sharp Hgb drop. 8.5/ 11.2 yesterday. Repeat H&H. Iron panel/ Stool occult blood ordered. Transfuse if <7.0 (3) Hives: Code(s): L50.9 - Urticaria, unspecified Status: Acute Assessment and Plan: - 01/20- Likely allergic reaction. Patient reports diffuse pruritis on 01/19. This AM after return from OR nursing staff noted lip and eye swelling, and hives seen across patient's chest. Patient denies shortness of breath, history of allergic reactions or sensitivities to any medications. No wheezing heard on auscultation. Benadryl and famotidine given. Only new medication given on 01/19 was hydromorphone, and fentanyl given in OR. Will add this as an allergy and continue to monitor patient for improvement. (4) Type 2 diabetes mellitus with hyperglycemia, without long-term current use of insulin: Code(s): E11.65 - Type 2 diabetes mellitus with hyperglycemia Status: Acute Assessment and Plan: Patient has been placed on blood glucose monitoring before meals and at bedtime and will resume patient's home long-acting insulin as well as short-acting insulin, but will also place patient on sliding scale insulin since this has not been controlling his blood glucose levels. -01/19- Glucose has been high in the 200s today. Increase basal insulin to 35 from 31 units, and increased t.i.d. aspart dosing from 7-10 units. Continue moderate dose sliding scale insulin and Accu-Cheks. Continue to optimize blood sugar control for optimal wound healing. -01/19- Glucose continues to be high, likely due to infection. Will see how basal and aspart dosing increase affects sugars today. adjust as necessary. Changed to high dose SSI. (5) GILES (obstructive sleep apnea): Code(s): G47.33 - Obstructive sleep apnea (adult) (pediatric) Status: Acute Assessment and Plan: Patient has been compliant with his CPAP will encourage him to continue compliance with his CPAP during hospitalization. Subjective Date/time seen: 01/20/22 10:13 48-year-old male with history diabetes, who presented due to testicular pain and swelling. Pt reports diffuse itchiness yesterday during the day. This morning after returning from the OR, he had further itchiness and lip swelling. He denies shortness of breath, wheezing, difficulty breathing, chest pain, dizziness, visual changes, fevers, chills. Review of Systems Review of Systems: All systems reviewed & are unremarkable except as noted in HPI and below Exam Narrative: GENERAL APPEARANCE: Alert and oriented
[2022-01-20] MEDS: diphenhydrAMINE HCl INJ 50 MG/ML VIAL IV PUSH (10:30)
[2022-01-20 10:56] LABS: Lactic Acid Reflex 2.5 mmol/L (0.7-2.0)
[2022-01-20 11:33] LABS: Glucose Point of Care 259 mg/dl (65-105)
[2022-01-20] MEDS: FAMOTIDINE 20 MG/2 ML VIAL IV PUSH (11:36)
[2022-01-20 12:07] LABS: Hematocrit 25.6 % (42.0-52.0); Hemoglobin 8.3 g/dL (14.0-18.0)
[2022-01-20 12:36] LABS: Iron 157 ug/dL (49-181)
[2022-01-20 12:46] LABS: Percent Iron Saturation 54 % (20-50)
[2022-01-20 13:44] LABS: Reflex Lactic Acid Yes or No Add Lactic
[2022-01-20 14:18] LABS: Lactic Acid 1.9 mmol/L (0.7-2.0)
[2022-01-20 16:41] LABS: Glucose Point of Care 149 mg/dl (65-105)
[2022-01-20] MEDS: methylPREDNISolone SOD SUCC 125 MG VIAL 60 MG IV PUSH (17:11)
[2022-01-20] MEDS: diphenhydrAMINE HCl INJ 50 MG/ML VIAL 25 MG IV PUSH (17:13)
--- NOTE | 2022-01-20 17:43 | PM.EVENT ---
Event Note Event Note Event Note: Cross Cover Note Called by nursing stating patient had increasing swelling to the face, forehead and lips. Patient is lying in bed. Significant swelling of the forehead, eyes and lips. Can open his barely open his eye. Denies difficulty breathing or shortness of breath. No stridor. Ordered epinephrine 0.3 mg x 1 IM Ordered methylprednisolone 125 mg IV q6h scheduled to be continued for 48 hours Ordered diphenhydramine 25 mg q6h scheduled x 48 hours Ordered famotidine 20 mg po BID scheduled x 48 hours Start tele May need albuterol if he develops bronchospasms from epinephrine. Discussed patient with conflict resolution professional, who will be checking on the patient throughout the night.
[2022-01-20] MEDS: EPINEPHrine HCL INJ 1 MG/ML AMPUL 0.3 MG IM (17:44)
[2022-01-20] MEDS: methylPREDNISolone SOD SUCC 125 MG VIAL IV PUSH (17:50)
[2022-01-20 18:58] LABS: Hemoglobin 8.1 g/dL (14.0-18.0)
--- NOTE | 2022-01-20 20:08 | PCRCNOTE ---
Pt ordered CPAP because he wears at home. Pt states that he does not wish to use one of our machines here. Pt states that if I sleep at an incline, I'm good. Pt was advised to let the nurse know if he changes his mind. Nurse advised that pt has refused.
[2022-01-20] MEDS: INSULIN GLARGINE (*BKC) 100 UNITS/ML 40 UNITS SUB-Q (21:29)
[2022-01-20] MEDS: FAMOTIDINE 20 MG TABLET PO (21:30)
[2022-01-20 21:40] LABS: Glucose Point of Care 274 mg/dl (65-105)
[2022-01-21] VITALS (11 sets, daily range): BP systolic 104–129; BP diastolic 62–79; PULSE 63–102; RESP 16–20; TEMP 36.5–36.6; O2SAT 92–98
[2022-01-21] MEDS: methylPREDNISolone SOD SUCC 125 MG VIAL IV PUSH ×5 (00:15→23:44)
[2022-01-21] MEDS: diphenhydrAMINE HCl CAP 25 MG CAPSULE PO ×5 (00:15→23:44)
[2022-01-21 00:30] LABS: Hematocrit 24.3 % (42.0-52.0)
[2022-01-21 05:23] LABS: Hematocrit 25.1 % (42.0-52.0); Hemoglobin 8.2 g/dL (14.0-18.0); Mean Corpuscular HGB Conc 32.7 g/dl (32-36); Mean Corpuscular Hemoglobin 28.8 pg (26-34); Mean Corpuscular Volume 88.1 fl (80-100); Mean Platelet Volume 10.1 fl (7.4-10.4); Platelet Count Result 386 k/mm3 (150-375); Red Blood Count 2.85 M/mm3 (4.6-6.20); Red Cell Distribution Width 12.6 % (11.5-14.5); White Blood Count 18.2 K/mm3 (4.5-10.0)
[2022-01-21 05:32] LABS: Anion Gap 8 mmol/L (8-16); Blood Urea Nitrogen 16 mg/dL (9-20); Calcium 8.8 mg/dL (8.4-10.2); Carbon Dioxide 27 mmol/L (22-30); Chloride 102 mmol/L (98-107); Estimated CRCL calculation 84 ml/min; Estimated Glomerular Filt Rate > 60; Glucose 299 mg/dL (65-110); Potassium 4.3 mmol/L (3.4-5.0); Sodium 137 mmol/L (137-145)
[2022-01-21 07:33] LABS: Glucose Point of Care 291 mg/dl (65-105)
[2022-01-21] MEDS: INSULIN ASPART (*BKC) 100 UNITS/ML 13 UNITS SUB-Q ×3 (09:43→17:53)
[2022-01-21] MEDS: FAMOTIDINE 20 MG TABLET PO ×2 (09:43→21:10)
[2022-01-21] MEDS: INSULIN ASPART (*BKC) 100 UNITS/ML SUB-Q ×3 (09:43→17:52)
[2022-01-21] MEDS: ATORVASTATIN 10 MG TABLET PO (09:43)
[2022-01-21 11:41] LABS: Glucose Point of Care 342 mg/dl (65-105)
[2022-01-21] MEDS: MORPHINE SULFATE (*CRX) 2 MG/ML INJ IV PUSH (12:44)
[2022-01-21] MEDS: HYDROcodone/acetaminophen (*CRX) 5-325 MG TABLET 1 TAB PO ×2 (12:44→17:51)
--- NOTE | 2022-01-21 12:59 | WPDUROPN2 ---
Progress Note: A&P Assessment and Plan (1) Anemia: Code(s): D64.9 - Anemia, unspecified Status: Acute (2) Scrotal abscess: Code(s): N49.2 - Inflammatory disorders of scrotum Status: Acute (3) Diabetes mellitus type 2, uncontrolled: Code(s): E11.65 - Type 2 diabetes mellitus with hyperglycemia Status: Acute Plan 56-year-old gentleman with large right scrotal abscess. S/P I&D 01/18/22, washout 01/20/22. -? continue IV antibiotics with vancomycin and cefepime. Wound culture was negative, consider switch to oral antibiotics upon discharge. ? -? wound repacked at bedside today.? He appears to be healing well.? Plan evaluation tomorrow by Wound ostomy Team, consider wound VAC placement - plan a scrotal ultrasound to assess the right testicle and hydrocele. The right testicle appears healthy on examination, hopefully no intervention is necessary. - recommend social work consultation this patient will likely need home health wound care - acute blood-loss anemia: H/ H stable. continue daily labs -? continue diabetes mellitus control per Primary team. Improved diabetes control will hopefully assist his wound healing. Subjective Subjective Date/Time Seen: 01/21/22 12:59 Review of Systems Review of Systems: patient feeling well. facial swelling resolved. No overnight events Exam Narrative: Patient is awake alert no acute distress. Breathing is unlabored. Abdomen soft nontender nondistended : The patient's packing was removed the incision in the right hemiscrotum appears to be healing well. The tissue was pink. The right testicle and right hydrocele are palpable and do not appear infected. Dressing change performed with packing of wound with moist Kerlix. Objective Data Vital Signs Vital Signs: Vital Signs - 24 hr 01/20/22 16:25 01/20/22 17:45 01/20/22 20:12 Temperature 36.5 C Pulse Rate 116 H Respiratory Rate 18 Blood Pressure 128/66 Pulse Oximetry 90 99 95 Oxygen Delivery Room Air Room Air 01/20/22 21:27 01/21/22 00:13 01/20/22 20:00 Temperature 36.8 C 36.6 C Pulse Rate 98 102 H 127 H Respiratory Rate 18 18 Blood Pressure 119/68 118/78 Pulse Oximetry 93 93 Oxygen Delivery 01/21/22 00:00 01/21/22 04:00 01/21/22 05:23 Temperature 36.5 C Pulse Rate 96 91 82 Respiratory Rate 16 Blood Pressure 129/79 Pulse Oximetry 92 Oxygen Delivery 01/21/22 08:26 Temperature Pulse Rate 91 Respiratory Rate Blood Pressure Pulse Oximetry Oxygen Delivery Intake/Output Intake/Output: Intake & Output 01/18/22 01/19/22 01/20/22 01/21/22 23:59 23:59 23:59 23:59 Intake Total 900 2350 2280 1370 Output Total 800 1750 5325 2600 Balance 100 253 -1697 -1231 Meds/Results Medications: Active Medications Generic Name Dose Route Start Last Admin Trade Name Freq PRN Reason Stop Dose Admin Acetaminophen 650 mg 01/18/22 12:46 Acetaminophen 325 Mg Tablet PO Q4H PRN Mild Pain (1-3) or Fever Hydrocodone Bitart/Acetaminophen 1 tab 01/18/22 12:46 Hydrocodone/Acetaminophen (*Crx) 5-325 Mg Tablet PO Q4H PRN Moderate Pain (4-6) Atorvastatin Calcium 10 mg 01/19/22 09:00 01/21/22 09:43 Atorvastatin 10 Mg Tablet PO 10 mg DAILY KATHERINE Administration Dextrose 12.5 gm 01/18/22 12:56 Dextrose 50% 25 Gm/50 Ml Syringe IV PUSH PRN PRN Hypoglycemia Protocol Diphenhydramine HCl 25 mg 01/20/22 17:40 01/21/22 05:37 Diphenhydramine Hcl Cap 25 Mg Capsule PO 25 mg Q6HR KATHERINE Administration Famotidine 20 mg 01/20/22 21:00 01/21/22 09:43 Famotidine 20 Mg Tablet PO 20 mg Q12HR KATHERINE Administration Glucagon 1 mg 01/18/22 12:56 Glucagon For Inj 1 Mg Vial IM PRN PRN Hypoglycemia Protocol Glucose 15 gm 01/18/22 12:56 Glucose Oral Gel 15 Gm Of Glucse In 37.5 Gm Tube PO PRN PRN Hypoglycemia Protocol Dextrose 1,000 mls
--- NOTE | 2022-01-21 14:27 | PM.IMPN ---
Progress Note: A&P Assessment and Plan (1) Scrotal abscess: Code(s): N49.2 - Inflammatory disorders of scrotum Status: Acute Assessment and Plan: 01/18- Patient underwent CT of the abdomen pelvis with contrast which showed?Worsened abscess in the scrotum on the right measuring 11.1 x 3.9 x 6.2 cm.. Pt was taken to OR on 01/18 for I&D with urology with abscess cavity of 15cm and 150ml fluid drained. Lizzy drain was placed. Urology provided following recommendations: ? -continue IV antibiotics, I would recommend we broad coverage while we await final cultures from the wound.? Consider Infectious Disease consultation. ? -wound care consult ? -patient may require additional washout and debridement versus repair. ? -continue daily labs -01/19- POD #1 Scrotal I&D. WBC elevation 11.3, likely postoperative.? Continue patient on Zosyn, Clinda, Vancomycin pending abscess cultures. Continue AM labs.? Wound was repacked at bedside by Urology today, they are considering another washout and or debridement with possible wound VAC placement in the OR. -01/19- POD#2 I&D, Patient taken back to OR this AM for additional debridement and wound washout. WBC ^13, Hgb 8.5, drop from 11.2 yesterday. VSS. No reportable blood loss in OR. Repeat H&H at noon. Lactic acid ordered. 01/21/2022 interval history: patient with large right scrotal abscess had I and D on 01/18/2022 POD#3 and washout on 01/20/2022 there is no gross from abscess and blood culture however patient is being treated Cefepime and vancomycin will continue IV antibiotics 1 more day and may switch over to oral antibiotics today patient was seen by his urologist recommending testicle ultrasound to further evaluate and wound care with possible VAC placement, patient states is feeling much better and wants to go home possibly tomorrow. (2) Anemia: Code(s): D64.9 - Anemia, unspecified Status: Acute Assessment and Plan: 01/20. Sharp Hgb drop. 8.5/ 11.2 yesterday.? Repeat H&H. Iron panel/ Stool occult blood ordered. Transfuse if <7.0 (3) Hives: ?Code(s): L50.9 - Urticaria, unspecified ?Status:?Acute ?Assessment and Plan: - 01/20- Likely allergic reaction. Patient reports diffuse pruritis on 01/19. This AM after return from OR nursing staff noted lip and eye swelling, and hives seen across patient's chest. Patient denies shortness of breath, history of allergic reactions or sensitivities to any medications.? No wheezing heard on auscultation.? Benadryl and famotidine given.? Only new medication given on 01/19 was hydromorphone, and fentanyl given in OR. Will add this as an allergy and continue to monitor patient for improvement. (3) Hives: Code(s): L50.9 - Urticaria, unspecified Status: Acute Assessment and Plan: ?01/20- Likely allergic reaction. Patient reports diffuse pruritis on 01/19. This AM after return from OR nursing staff noted lip and eye swelling, and hives seen across patient's chest. Patient denies shortness of breath, history of allergic reactions or sensitivities to any medications.? No wheezing heard on auscultation.? Benadryl and famotidine given.? Only new medication given on 01/19 was hydromorphone, and fentanyl given in OR. Will add this as an allergy and continue to monitor patient for improvement. (4) Type 2 diabetes mellitus with hyperglycemia, without long-term current use of insulin: Code(s): E11.65 - Type 2 diabetes mellitus with hyperglycemia Status: Acute Assessment and Plan: Patient has been placed on blood glucose monitoring before meals and at bedtime and will resume patient's home long-acting insulin as well as short-acting insulin, but will also place patient on sliding scale insulin since this has not been controlling his blood glucose levels. -01/19- Glucose has been high in the 200s today.? Increase basal insulin to 35 from 31 units, and increased t.i.d. aspart dosing from 7-10 units.? Continue moder
[2022-01-21 16:21] LABS: Glucose Point of Care 336 mg/dl (65-105)
[2022-01-21 19:36] LABS: Vancomycin Trough 16.5 ug/mL (10.0-20.0)
[2022-01-21] MEDS: INSULIN GLARGINE (*BKC) 100 UNITS/ML 40 UNITS SUB-Q (21:11)
[2022-01-21 21:23] LABS: Glucose Point of Care 285 mg/dl (65-105)
[2022-01-22] VITALS (10 sets, daily range): BP systolic 106–125; BP diastolic 59–63; PULSE 51–78; RESP 16–18; TEMP 35.8–36.4; O2SAT 94–99
[2022-01-22] MEDS: methylPREDNISolone SOD SUCC 125 MG VIAL IV PUSH (05:34)
[2022-01-22] MEDS: diphenhydrAMINE HCl CAP 25 MG CAPSULE PO ×4 (05:34→23:42)
[2022-01-22 07:42] LABS: Glucose Point of Care 293 mg/dl (65-105)
[2022-01-22] MEDS: INSULIN ASPART (*BKC) 100 UNITS/ML SUB-Q ×3 (07:56→18:32)
--- NOTE | 2022-01-22 08:48 | WPDUROPN2 ---
Progress Note: A&P Assessment and Plan (1) Scrotal abscess: Code(s): N49.2 - Inflammatory disorders of scrotum Status: Acute Assessment and Plan: We await wound care to determine if they can place a wound vac at the bedside and their treatment care plan for discharge. If they are unable to place a wound vac, we will plan to place it with Dr. Ortega in the OR tomorrow and possibly utilize home health for wound care. (2) Hives: Code(s): L50.9 - Urticaria, unspecified Status: Acute Assessment and Plan: Resolved (3) Sepsis: Qualifiers: Sepsis type: sepsis due to unspecified organism Sepsis acute organ dysfunction status: without acute organ dysfunction Qualified Code(s): A41.9 - Sepsis, unspecified organism Code(s): A41.9 - Sepsis, unspecified organism Status: Acute Assessment and Plan: Although WBC is elevated, I suspect this is a response to his recent surgeries as he is on IV antibiotics and his cultures were negative likely d/t previous antibiotic treatment of Augmentin. He is clinically stable otherwise and improved. Subjective Subjective Date/Time Seen: 01/22/22 08:48 Patient is s/p Scrotal Abscess I&D and wash out on 01/18/22 and wound debridement with irrigation, packing and washout on 01/20/22. He is doing well, sitting up in his chair, tolerating diet and activity. His pain is improved and well controlled. He had a rash that has now resolved, thinking it may have been from antibiotics. Review of Systems Cardiovascular: Comments: Denies Chest Pain Respiratory: Comments: Denies difficulty breathing. Gastrointestinal: Comments: Denies abdominal pain. Genitourinary: Comments: Scrotal pain is present, but well controlled, dressing is dry and wound is draining. Exam Resp: Effort & Inspection: normal respiratory effort Cardio: Rate: bradycardic GI: GI Palp: Yes Soft to palpation and No Tenderness to palpation present (GI) : Scrotum: edematous (improved, dresssing dry and wound packing in place) and other (incision wound edges are pink and granulation tissue is noted) Objective Data Vital Signs Vital Signs: Vital Signs - 24 hr 01/21/22 12:00 01/21/22 14:32 01/21/22 16:00 Temperature 97.8 F Pulse Rate 99 80 63 Respiratory Rate 20 Blood Pressure Pulse Oximetry 92 Oxygen Delivery 01/21/22 19:30 01/21/22 20:00 01/21/22 22:00 Temperature 97.8 F Pulse Rate 64 65 74 Respiratory Rate 16 Blood Pressure 104/62 Pulse Oximetry 94 98 Oxygen Delivery Room Air 01/22/22 00:00 01/22/22 04:00 01/22/22 06:00 Temperature 96.4 F L Pulse Rate 78 51 L 54 L Respiratory Rate 16 Blood Pressure 106/59 L Pulse Oximetry 94 Oxygen Delivery Intake/Output Intake/Output: Intake & Output 01/19/22 01/20/22 01/21/22 01/22/22 23:59 23:59 23:59 23:59 Intake Total 2350 2280 2450 1500 Output Total 1750 5325 5300 3200 Balance 779 -5816 -9700 -7668 Meds/Results Medications: Active Medications Generic Name Dose Route Start Last Admin Trade Name Freq PRN Reason Stop Dose Admin Acetaminophen 650 mg 01/18/22 12:46 Acetaminophen 325 Mg Tablet PO Q4H PRN Mild Pain (1-3) or Fever Hydrocodone Bitart/Acetaminophen 1 tab 01/18/22 12:46 01/21/22 17:51 Hydrocodone/Acetaminophen (*Crx) 5-325 Mg Tablet PO 1 tab Q4H PRN Administration Moderate Pain (4-6) Atorvastatin Calcium 10 mg 01/19/22 09:00 01/21/22 09:43 Atorvastatin 10 Mg Tablet PO 10 mg DAILY KATHERINE Administration Dextrose 12.5 gm 01/18/22 12:56 Dextrose 50% 25 Gm/50 Ml Syringe IV PUSH PRN PRN Hypoglycemia Protocol Diphenhydramine HCl 25 mg 01/20/22 17:40 01/22/22 05:34 Diphenhydramine Hcl Cap 25 Mg Capsule PO 25 mg Q6HR KATHERINE Administration Famotidine 20 mg 01/20/22 21:00 01/21/22 21:10 Famotidine 20 Mg Tablet PO 20 mg Q12HR KATHERINE Administration Glucagon 1
[2022-01-22 09:12] LABS: Hematocrit 23.8 % (42.0-52.0); Hemoglobin 7.8 g/dL (14.0-18.0); Mean Corpuscular HGB Conc 32.8 g/dl (32-36); Mean Corpuscular Hemoglobin 29.5 pg (26-34); Mean Corpuscular Volume 90.2 fl (80-100); Mean Platelet Volume 10.3 fl (7.4-10.4); Platelet Count Result 486 k/mm3 (150-375); Red Blood Count 2.64 M/mm3 (4.6-6.20); Red Cell Distribution Width 13.1 % (11.5-14.5); White Blood Count 27.2 K/mm3 (4.5-10.0)
[2022-01-22 09:15] LABS: Anion Gap 8 mmol/L (8-16); Blood Urea Nitrogen 21 mg/dL (9-20); Calcium 9.4 mg/dL (8.4-10.2); Carbon Dioxide 27 mmol/L (22-30); Chloride 102 mmol/L (98-107); Estimated CRCL calculation 92 ml/min; Estimated Glomerular Filt Rate > 60; Glucose 317 mg/dL (65-110); Potassium 4.2 mmol/L (3.4-5.0); Sodium 137 mmol/L (137-145)
[2022-01-22] MEDS: ATORVASTATIN 10 MG TABLET PO (09:55)
[2022-01-22] MEDS: FAMOTIDINE 20 MG TABLET PO (09:56)
[2022-01-22] MEDS: INSULIN ASPART (*BKC) 100 UNITS/ML 13 UNITS SUB-Q ×3 (09:56→18:33)
[2022-01-22] MEDS: HYDROcodone/acetaminophen (*CRX) 5-325 MG TABLET 1 TAB PO (09:58)
[2022-01-22 11:48] LABS: Glucose Point of Care 366 mg/dl (65-105)
[2022-01-22 16:20] LABS: Glucose Point of Care 318 mg/dl (65-105)
--- NOTE | 2022-01-22 17:14 | PM.IMPN ---
Progress Note: A&P Assessment and Plan (1) Scrotal abscess: Code(s): N49.2 - Inflammatory disorders of scrotum Status: Acute Assessment and Plan: 01/18- Patient underwent CT of the abdomen pelvis with contrast which showed?Worsened abscess in the scrotum on the right measuring 11.1 x 3.9 x 6.2 cm.. Pt was taken to OR on 01/18 for I&D with urology with abscess cavity of 15cm and 150ml fluid drained. Lizzy drain was placed. Urology provided following recommendations: ? -continue IV antibiotics, I would recommend we broad coverage while we await final cultures from the wound.? Consider Infectious Disease consultation. ? -wound care consult ? -patient may require additional washout and debridement versus repair. ? -continue daily labs -01/19- POD #1 Scrotal I&D. WBC elevation 11.3, likely postoperative.? Continue patient on Zosyn, Clinda, Vancomycin pending abscess cultures. Continue AM labs.? Wound was repacked at bedside by Urology today, they are considering another washout and or debridement with possible wound VAC placement in the OR. -01/19- POD#2 I&D, Patient taken back to OR this AM for additional debridement and wound washout. WBC ^13, Hgb 8.5, drop from 11.2 yesterday. VSS. No reportable blood loss in OR. Repeat H&H at noon. Lactic acid ordered. 01/21/2022 interval history: patient with large right scrotal abscess had I and D on 01/18/2022 POD#3 and washout on 01/20/2022 there is no gross from abscess and blood culture however patient is being treated Cefepime and vancomycin will continue IV antibiotics 1 more day and may switch over to oral antibiotics today patient was seen by his urologist recommending testicle ultrasound to further evaluate and wound care with possible VAC placement, patient states is feeling much better and wants to go home possibly tomorrow. 01/22/2022 interval history: patient with large right scrotal abscess had I and D on 01/18/2022 POD#4 and washout on 01/20/2022 there is no growth abscess and blood culture however patient is being treated Cefepime and vancomycin will continue IV antibiotics 1 more day and may switch over to oral antibiotics on 5/30 patient was seen by his urologist recommending testicle ultrasound to further evaluate and wound care with possible VAC placement, patient testicle ultrasound showed bilateral small hydroceles, patient was seen wound care team and will plan wound VAC and further recommendation to follow patient states is feeling much better and wants to go home possibly tomorrow. (2) Anemia: Code(s): D64.9 - Anemia, unspecified Status: Acute Assessment and Plan: 01/20. Sharp Hgb drop. 8.5/ 11.2 yesterday.? Repeat H&H. Iron panel/ Stool occult blood ordered. Transfuse if <7.0 (3) Hives: ?Code(s): L50.9 - Urticaria, unspecified ?Status:?Acute ?Assessment and Plan: - 01/20- Likely allergic reaction. Patient reports diffuse pruritis on 01/19. This AM after return from OR nursing staff noted lip and eye swelling, and hives seen across patient's chest. Patient denies shortness of breath, history of allergic reactions or sensitivities to any medications.? No wheezing heard on auscultation.? Benadryl and famotidine given.? Only new medication given on 01/19 was hydromorphone, and fentanyl given in OR. Will add this as an allergy and continue to monitor patient for improvement. (3) Hives: Code(s): L50.9 - Urticaria, unspecified Status: Acute Assessment and Plan: ?01/20- Likely allergic reaction. Patient reports diffuse pruritis on 01/19. This AM after return from OR nursing staff noted lip and eye swelling, and hives seen across patient's chest. Patient denies shortness of breath, history of allergic reactions or sensitivities to any medications.? No wheezing heard on auscultation.? Benadryl and famotidine given.? Only new medication given on 01/19 was hydromorphone, and fentanyl given in OR. Will add this as an allergy and genny
[2022-01-22] MEDS: INSULIN GLARGINE (*BKC) 100 UNITS/ML 40 UNITS SUB-Q (20:46)
[2022-01-22 21:02] LABS: Glucose Point of Care 322 mg/dl (65-105)
[2022-01-23] VITALS: PULSE 53
[2022-01-23 04:00] VITALS: PULSE 47
[2022-01-23 05:52] VITALS: BP 100/55; PULSE 50; RESP 16; TEMP 36.4; O2SAT 98
[2022-01-23] MEDS: diphenhydrAMINE HCl CAP 25 MG CAPSULE PO ×2 (06:03→12:46)
[2022-01-23 07:50] LABS: Glucose Point of Care 211 mg/dl (65-105)
[2022-01-23 08:00] VITALS: PULSE 60
[2022-01-23] MEDS: ATORVASTATIN 10 MG TABLET PO (09:35)
[2022-01-23] MEDS: INSULIN ASPART (*BKC) 100 UNITS/ML SUB-Q ×2 (09:36→12:46)
[2022-01-23] MEDS: INSULIN ASPART (*BKC) 100 UNITS/ML 13 UNITS SUB-Q ×2 (09:36→12:46)
[2022-01-23 11:38] LABS: Glucose Point of Care 296 mg/dl (65-105)
[2022-01-23 11:55] LABS: Vancomycin Trough 16.9 ug/mL (10.0-20.0)
[2022-01-23 12:39] LABS: Basophils Percent Auto 0.1 % (0.2-1.2); Hemoglobin 7.9 g/dL (14.0-18.0); Immature Granulocyte Absolute 0.71 K/mm3 (0.00-0.031); Immature Granulocyte Percent A 2.7 % (0-0.5); Lymphocytes Absolute Auto 3.48 K/mm3 (0.9-3.2); Lymphocytes Percent Auto 13.4 % (18.3-44.2); Mean Corpuscular HGB Conc 31.6 g/dl (32-36); Mean Corpuscular Hemoglobin 29.7 pg (26-34); Mean Platelet Volume 10.8 fl (7.4-10.4); Monocytes Absolute Auto 1.9 K/mm3 (0.1-0.6); Monocytes Percent Auto 7.1 % (2.6-8.5); Neutrophils Absolute Auto 19.9 K/mm3 (1.3-6.7); Neutrophils Percent Auto 76.7 % (45.5-73.1); Nucleated Red Blood Cells Absolute Auto 0.1 K/mm3 (0.0-0.012); Nucleated Red Blood Cells Perc 0.3 % (0.0-0.2); Platelet Count Result 548 k/mm3 (150-375); Red Blood Count 2.66 M/mm3 (4.6-6.20); Red Cell Distribution Width 14.4 % (11.5-14.5); White Blood Count 25.9 K/mm3 (4.5-10.0)
[2022-01-23] MEDS: methylPREDNISolone SOD SUCC 125 MG VIAL 60 MG IV PUSH (12:46)
--- NOTE | 2022-01-23 12:52 | PM.DS ---
DS: Admitting Diagnosis Discharge Date January 23, 2022 Admitting Diagnosis scrotal abscess DS: Discharge Diagnosis Discharge Diagnosis (1) Scrotal abscess: Code(s): N49.2 - Inflammatory disorders of scrotum Status: Acute Assessment and Plan: Status post I&D for abscess. Follow-up with Urology. Bactrim for 7 days on dischar [facility] for wound care (2) Anemia: Code(s): D64.9 - Anemia, unspecified Status: Acute Assessment and Plan: monitor outpatient (3) Hives: Code(s): L50.9 - Urticaria, unspecified Status: Acute Assessment and Plan: improved question related to hydromorphone 4 (4) Type 2 diabetes mellitus with hyperglycemia, without long-term current use of insulin: Code(s): E11.65 - Type 2 diabetes mellitus with hyperglycemia Status: Acute Assessment and Plan: continue home meds follow up with primary care physician (5) GILES (obstructive sleep apnea): Code(s): G47.33 - Obstructive sleep apnea (adult) (pediatric) Status: Acute Assessment and Plan: chronic stable DS: Summary Hospital Course Hospital Course: patient was for scrotal abscess. Status post I&D by Urology. Tolerated procedure well. Cultures negative likely presumably from prior antibiotic exposure. Continue Bactrim for 7 more days on discharge. Continue home health wound care. Time Spent with Patient Time attestation: Total time spent providing and/or coordinating discharge services: Exam Narrative: moderately obese Patient is comfortable, NAD HEENT: eyes are clear and none icteric LUNGS: normal respiratory effort ABD: distended Lower extremities: no edema SKIN: nonjaundiced Neuro: grossly intact. DS: Data Data Completed and Pending Labs on day of discharge: Labs from last 24 hours 01/23/22 01/23/22 01/23/22 11:34 11:05 11:03 WBC 25.9 H RBC 2.66 L Hgb 7.9 L Hct 25.0 L MCV 94.0 MCH 29.7 MCHC 31.6 L RDW 14.4 Plt Count 548 H MPV 10.8 H Immature Gran % (Auto) 2.7 H Neut % (Auto) 76.7 H Lymph % (Auto) 13.4 L Hart % (Auto) 7.1 Eos % (Auto) 0.0 Baso % (Auto) 0.1 L Lymph # (Auto) 3.48 H Hart # (Auto) 1.9 H Eos # (Auto) 0.0 Baso # (Auto) 0.0 Abs Immat Gran (auto) 0.71 H Absolute Neuts (auto) 19.9 H Absolute Nucleated RBC 0.1 H Nucleated RBC % 0.3 H POC Capillary Glucose 296 H Vancomycin Trough 16.9 01/23/22 01/22/22 01/22/22 07:46 20:37 16:17 WBC RBC Hgb Hct MCV MCH MCHC RDW Plt Count MPV Immature Gran % (Auto) Neut % (Auto) Lymph % (Auto) Hart % (Auto) Eos % (Auto) Baso % (Auto) Lymph # (Auto) Hart # (Auto) Eos # (Auto) Baso # (Auto) Abs Immat Gran (auto) Absolute Neuts (auto) Absolute Nucleated RBC Nucleated RBC % POC Capillary Glucose 211 H 322 H 318 H Vancomycin Trough Preliminary micro results at discharge 01/22/22 10:23 Blood Culture - Preliminary Blood 01/22/22 10:18 Blood Culture - Preliminary Blood 01/18/22 17:53 Anaerobic Culture - Preliminary Abscess Discharge Plan Discharge Attending physician on discharge: Kam Farley Consulting providers: Tressa Ortega Discharging Clinician: Kam Farley Patient Disposition: Home Health Service Activity: no preference Diet: as tolerated Discharge Instructions: Urology Instructions: Follow up with Dr. Ortega in 2-3 weeks. Our office will call to set up your appointment. Home health will see you every 3 days for dressing changes and to replace your packing. Call the office or go to the ER if you develop a fever, increased drainage or wound concerns. You may replace your outer dressing (not your packing) at least daily after showering and as needed. Care Coordination: Patient to have [facility]
[2022-01-23] MEDS: HYDROcodone/acetaminophen (*CRX) 5-325 MG TABLET 1 TAB PO (13:26)
== END 2022-01-23 14:07 | disposition home health service (06) | DRG 717 ==
PROVIDERS: Family Medicine; Nurse Practitioner Adult Health; Student in an Organized Health Care Education/Training Program; Urology; Admitting Provider Internal Medicine; PCP Family Medicine; Referring Provider Nurse Practitioner Adult Health; Visit Provider Chiropractor
PROC: 0V950ZZ Drainage of Scrotum, Open Approach (ICD-10-PCS; CPT 54700; principal; 2022-01-18 16:45)
PROC: 0VB50ZZ Excision of Scrotum, Open Approach (ICD-10-PCS; CPT 54700; principal; 2022-01-20 07:30)
DX: N49.2 Inflammatory disorders of scrotum (principal); D62 Acute posthemorrhagic anemia; N43.3 Hydrocele, unspecified; L50.0 Allergic urticaria; T40.2X5A Adverse effect of other opioids, initial encounter; F17.220 Nicotine dependence, chewing tobacco, uncomplicated; F17.290 Nicotine dependence, other tobacco product, uncomplicated; E78.5 Hyperlipidemia, unspecified; Z79.4 Long term (current) use of insulin; Z79.899 Other long term (current) drug therapy; E11.65 Type 2 diabetes mellitus with hyperglycemia; G47.33 Obstructive sleep apnea (adult) (pediatric)
CPT/HCPCS: 36415; 72193; 76870; 80048; 80053; 80202; 82948; 83540; 83550; 83605; 83735; 85014; 85018; 85025; 85027; 85610; 85730; 87040; 87070; 87075; 87086; 87205; 93976; A9270; G0378; G0379; J0171; J0330; J0690; J0692; J0696; J1170; J1200; J1650; J1815; J2250; J2270; J2405; J2543; J2704; J2930; J3010; J3370; J7120; Q9967

== ENCOUNTER 2025-08-16 10:08 | Outpatient (CLI) | payer OTHER, SELFPAY ==
--- NOTE | ~2025-08-16 | XR_ITS ---
XR knee LT 3V 08/16/2025 10:26 Indication: Left knee pain Procedure: 3 views left knee Comparison: No prior studies for comparison. Findings: No fracture, subluxation or dislocation. No significant joint effusion. No foreign bodies. Impression: 1: No significant bone or joint abnormality. Reviewed, dictated and finalized at location O. ENT COORDINATOR Impression: 1: No significant bone or joint abnormality.
--- NOTE | ~2025-08-16 | XR_ITS ---
XR shoulder LT min 2V 08/16/2025 10:27 Indication: Type 2 diabetes Procedure: 4 views left shoulder Comparison: No prior studies for comparison. Findings: There is polyarticular osteoarthritis of the left shoulder. No fracture, subluxation or dislocation. There is anatomic alignment. No soft tissue abnormality. No foreign bodies. Impression: 1: Mild polyarticular osteoarthritis. Reviewed, dictated and finalized at location O. A HAND Impression: 1: Mild polyarticular osteoarthritis.
--- OUTSIDE RECORDS SUMMARY | 2025-08-16 10:37 | XMS_ITS | Clinical Summary ---
Author Organization [facility] Address [address] [place] [address] Care Team Providers Care Vault Worker Name Role Phone Kam Manning MD Primary Care Provider [phone] Allergies No known active allergies Medications atorvastatin (LIPITOR) 10 mg tablet Take 10 mg by mouth daily 10/31/2021 Active pen needle, diabetic (BD Ultra-Fine Short Pen Needle) 31 gauge x 5/16 needle 31 Units nightly 90 each 01/14/2022 Active insulin lispro (HumaLOG, ADMELOG) 100 unit/mL pen for injection Inject 7 Units under the skin 3 (three) times a day with meals 15 mL 01/14/2022 Active pen needle, diabetic 32 gauge x 5/32 needle Use as directed 3 times a day. 100 each 01/14/2022 Active blood glucose strip-disp meter kit Use as directed. 1 kit 01/14/2022 Active alcohol swabs (Alcohol Wipes) pads, medicated Use as directed. 100 each 01/14/2022 Active insulin glargine (insulin glargine) 100 unit/mL (3 mL) pen for injection Inject 31 Units under the skin nightly 15 mL 01/14/2022 Active Active Problems Problem Noted Date Diagnosed Date Hyponatremia 01/10/2022 Assessment & Plan (01/13/2022 11:52 AM CDT): Due to hyperglycemia. Resolve Assessment & Plan (01/12/2022 7:26 AM CDT): Due to hyperglycemia. Resolve Assessment & Plan (01/11/2022 4:03 PM CDT): Due to hyperglycemia. Resolve Assessment & Plan (01/10/2022 3:01 PM CDT): Due to hyperglycemia Thrombocytopenia 01/10/2022 Assessment & Plan (01/14/2022 4:05 PM CDT): Platelet 130 on admission. B12, Folic acid and TSH WNL. Now is 214. Most likely due to infection Assessment & Plan (01/13/2022 11:56 AM CDT): Platelet 130 on admission. B12, Folic acid and TSH WNL. Now is 185. Most likely due to infection Assessment & Plan (01/12/2022 7:46 AM CDT): B12, Folic acid and TSH WNL. HIV neg. F/u with PCP Assessment & Plan (01/11/2022 4:04 PM CDT): B12, Folic acid and TSH WNL. HIV neg. F/u with PCP Assessment & Plan (01/10/2022 2:21 PM CDT): Order B12, Folic acid, TSH and HIV Scrotal infection 01/09/2022 Assessment & Plan (01/14/2022 4:04 PM CDT): 2 month history of recurrent boil on R scrotum, now with 2 days of scrotal redness, swelling, and pain along with fever, chills, malaise. Presented to [place] and transferred to [facility] for Urology evaluation. CT A/P w/ contrast re-read here as likely cellulitis w/o evidence of gas formation or abscess, no testicular or epididymal pathology. Urology consulted in AM of 01/09 and felt likelihood of Chani's currently low. -Stop cefepime, start meropenem 1g q8h and vancomcyin. IV clindamycin was comtinued. Discharge w/ TMP SMX and Augmentin - Serial scrotal exams per Urology, appreciate recommendations - BCx NGTD - By urology, no surgery at the moment Assessment & Plan (01/13/2022 11:54 AM CDT): 2 month history of recurrent boil on R scrotum, now with 2 days of scrotal redness, swelling, and pain along with fever, chills, malaise. Presented to [place] and transferred to [facility] for Urology evaluation. CT A/P w/ contrast re-read here as likely cellulitis w/o evidence of gas formation or abscess, no testicular or epididymal pathology. Urology consulted in AM of 01/09 and felt likelihood of Chani's currently low. -Stop cefepime, start meropenem 1g q8h and vancomcyin. Continue IV clindamycin. IV Abx was started 01/09 -Serial scrotal exams per Urology, appreciate recommendations - BCx NGTD - By urology, no surgery at the moment - On 01/12 IV Abx was changed to TMP SMX and Augmentin to complete 10 days Abx Assessment & Plan (01/12/2022 7:23 AM CDT): 2 month history of recurrent boil on R scrotum, now with 2 days of scrotal redness, swelling, and pain along with fever, chills, malaise. Presented to [place] and transferred to [facility] for Urology evaluation. CT A/P w/ contrast re-read here as likely cellulitis w/o evidence of gas formation or abscess, no testicular or epididymal pathology. Urology consulted in AM of 01/09 and felt likelihood of Chani's currently low. -Continue IV clindamycin -Stop cefepime, start meropenem 1g q8h and vancomcyin 15/mg kg q8h -Serial scrotal exams per Urology, appreciate recommendations - BCx NGTD - By urology, no surgery at the moment - On 01/12 IV Abx was changed to TMP SMX and Augmentin to complete 10 days Abx Assessment & Plan (01/11/2022 4:00 PM CDT): 2 month history of recurrent boil on R scrotum, now with 2 days of scrotal redness, swelling, and pain along with fever, chills, malaise. Presented to [place] and transferred to [facility] for Urology evaluation. CT A/P w/ contrast re-read here as likely cellulitis w/o evidence of gas formation or abscess, no testicular or epididymal pathology. Urology consulted in AM of 01/09 and felt likelihood of Chani's currently low. -Continue IV clindamycin -Stop cefepime, start meropenem 1g q8h and vancomcyin 15/mg kg q8h -Serial scrotal exams per Urology, appreciate recommendations - BCx NGTD - By urology, no surgery at the moment Assessment & Plan (01/10/2022 2:22 PM CDT): 2 month history of recurrent boil on R scrotum, now with 2 days of scrotal redness, swelling, and pain along with fever, chills, malaise. Presented to [place] and transferred to [facility] for Urology evaluation. CT A/P w/ contrast re-read here as likely cellulitis w/o evidence of gas formation or abscess, no testicular or epididymal pathology. Urology consulted in AM of 01/09 and felt likelihood of Chani's currently low. -Continue IV clindamycin -Stop cefepime, start meropenem 1g q8h and vancomcyin 15/mg kg q8h -Serial scrotal exams per Urology, appreciate recommendations -Send blood cultures X 2 - By urology, no surgery at the moment Type 2 diabetes mellitus 01/09/2022 Assessment & Plan (01/14/2022 4:06 PM CDT): A1c 14. On metformin 500 BID at home. - Adjusted insulin- Lantus 31u daily and humalog 10u TID - DM education - I explained to pt that will need insulin after discharge - PCP as outpatient will need adjust DM medications - Discharge with Lantus 31u PM and Humalog 7u TID. Will need to have a close fu by PCP Assessment & Plan (01/13/2022 11:57 AM CDT): A1c 14. On metformin 500 BID at home. - Adjusted insulin- Lantus 31u daily and humalog 10u TID - DM education - I explained to pt that will need insulin after discharge - PCP as outpatient will need adjust DM medications - Discharge with Lantus 31u PM and [id number] TID Assessment & Plan (01/12/2022 7:25 AM CDT): A1c 14. On metformin 500 BID at home. - Adjusted insulin- Lantus 31u daily and humalog 10u TID - DM education - I explained to pt that will need insulin after discharge - PCP as outpatient will need adjust DM medications - Discharge with Lantus 31u PM and [id number] TID Assessment & Plan (01/11/2022 4:02 PM CDT): A1c 14. On metformin 500 BID at home. - Adjusted insulin- Lantus 31u daily and humalog 10u TID - DM education - I explained to pt that will need insulin after discharge, Assessment & Plan (01/10/2022 2:19 PM CDT): A1c 14. On metformin 500 BID at home. 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 CHOICE [facility] HMO/PPO Address: [address] [address] [place] [address] [facility] CHOICE OOS BLUE ACCESS OOS BLUE [facility] CHOICE OOS Advance Directives For more information, please contact: [phone] * Full Code (Latest Code Status on File) Date Activated Date Inactivated Comments 01/09/2022 10:55 AM 01/14/2022 4:03 PM Care Teams Vault Worker Relationship Specialty Start Date End Date Kam Manning MD PCP - General 07/14/19
--- OUTSIDE RECORDS SUMMARY | 2025-08-16 10:37 | XMS_ITS | Encounter Summary ---
Author Organization [facility] Healthcare Address [address] [place] [address] Care Team Providers Care Civilian Technician Name Role Phone Kam Manning MD Primary Care Provider [phone] Encounter Details Date Type Department Care Team (Late st Contact Info) Description 02/19/2022 Documentation [facility] Case Management [address] [place] [address] Seth Gaines, RN Social History Tobacco Use Types Packs/Day Years Used Date Smoking Tobacco: Never Assessed Smokeless Tobacco: Current Alcohol Use Standard Drinks/Week Comments Yes 0 (1 standard drink = 0.6 oz pur e alcohol) Sex and Gender Information Value Date Recorded Sex Assigned at Not on file 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
--- OUTSIDE RECORDS SUMMARY | 2025-08-16 10:37 | XMS_ITS | Clinical Summary ---
Author Organization [facility] Care Team Providers Care Jive Developer Name Role Phone Unavailable Primary Care Provider Unavailabl e Immunizations Immunization Administration Dates Next Due Covid-19, Mrna, Lnp-s, PF, 5 0 mcg/0.25 mL dose (Moderna) 08/29/2021 Social History Tobacco Use Types Packs/Day Years Used Date Smoking Tobacco: Never Assessed Sex and Gender Information Value Date Recorded Sex Assigned at Not on file Legal Sex Male 12:17 AM CDT Gender Identity Not on file Sexual Orientation Not on file Plan of Treatment Health Maintenance Due Date Last Done Comments Hepatitis C Virus (HCV) Screening 1965 TdaP Immunization 1965 Cologuard 2008 Colonoscopy 2008 Colorectal Cancer Screening 2008 Immunochemical Fecal Occult Blood 2008 Pneumococcal Immunization (5 0+ years) (1 of 1 - PCV) 2013 Zoster Immunization (1 of 2) 2013 Influenza Immunization (#1) 2025 SARS-COV-2 Immunization ( season) 2025 08/29/2021, 12/29/2020, 12/01/2020 Respiratory Syncytial Virus (RSV) Immunization (Adult) (1 - 1-dose 75+ series) 2038 Hepatitis B Immunization Aged Out No longer eligible based on patient's age to complete this topic Human Papillomavirus (HPV) Immunization (No Doses Required) Completed Meningococcal Immunization (ACWY) Aged Out No longer eligible b ased on patient's age to complete this topic Rotavirus Immunization Aged Out No lo nger eligible based on patient's age to complete this topic
--- OUTSIDE RECORDS SUMMARY | 2025-08-16 10:37 | XMS_ITS | Clinical Summary ---
Author Organization [facility] Address [address] [place] [address] Care Team Providers Care Outside Salesman Name Role Phone Unavailable Primary Care Provider Unavailabl e Social History Tobacco Use Types Packs/Day Years Used Date Smoking Tobacco: Smoker, Current Status Unknown Sex and Gender Information Value Date Recorded Sex Assigned at Not on file Legal Sex Male 6:56 PM CDT Gender Identity Not on file Sexual Orientation Not on file Last Filed Vital Signs Vital Sign Reading Time Taken Comments Blood Pressure 136/92 09/01/2009 2:56 AM DAY CARE DIRECTOR Pulse 72 09/01/2009 2:55 AM DAY CARE DIRECTOR Temperature - - Respiratory Rate 20 09/01/2009 2:55 AM DAY CARE DIRECTOR Oxygen Saturation - - Inhaled Oxygen Concentration - - Weight 123.4 kg (272 lb) 09/01/2009 2:55 AM DAY CARE DIRECTOR Height 182.9 cm (6') 09/01/2009 2:55 AM DAY CARE DIRECTOR Body Mass Index 36.89 09/01/2009 2:55 AM DAY CARE DIRECTOR Plan of Treatment Health Maintenance Due Date Last Done Comments Colorectal Cancer Screening Colonoscopy (10 Years) 1963 Annual Physical 1966 Hepatitis C 1981 DTaP, Tdap and Td Vaccines ( 1 - Tdap) 1982 Pneumococcal Vaccine: 50+ Ye ars (1 of 1 - PCV) 2013 Zoster Vaccines (1 of 2) 2013 COVID-19 Vaccine ( - 2024-2 6 season) 2025 Influenza Adult (#1) 2025 RSV Immunization or 60+ Years (1 - 1-dose 75+ series) 2038 Hepatitis A Vaccines Aged Out No long er eligible based on patient's age to complete this topic Meningococcal B Vaccine Aged Out No l onger eligible based on patient's age to complete this topic Meningococcal Vaccine Aged Out No ronn tenzin eligible based on patient's age to complete this topic RSV Immunizations Under 20 Months Aged Out No longer eligible based on patient's age to complete this topic
== END 2025-08-16 10:09 | disposition home or self-care (01) ==
PROVIDERS: PCP Family Medicine; Visit Provider Family Medicine
DX: E11.618 Type 2 diabetes mellitus with other diabetic arthropathy (principal); M75.02 Adhesive capsulitis of left shoulder; M23.92 Unspecified internal derangement of left knee
CPT/HCPCS: 73030; 73562